=== PATIENT | female | born 1960 | race Caucasian/White ===

== ENCOUNTER 2020-09-25 15:32 | Inpatient (IN) | payer SELFPAY ==
[2020-09-25] MEDS ORDERED: Nitroglycerin 2% Ointment 1 INCH/1 GM Packet ONE (15:44)
[2020-09-25] MEDS ORDERED: Morphine 4 MG/ML VIAL ONE (15:54)
[2020-09-25] MEDS ORDERED: Magnesium 2 GM/50 ML BAG (IN WATER) ONE (15:54)
[2020-09-25] MEDS ORDERED: Ondansetron PF 4 MG/2 ML Vial ONE (15:54)
[2020-09-25] MEDS ORDERED: Albuterol 200 PUFF (6.7GM INHALER) ONE (15:54)
[2020-09-25] MEDS ORDERED: Aspirin 325 MG TAB ONE (15:54)
[2020-09-25] MEDS ORDERED: methylPREDNISolone Sod Succ/PF 125 MG/2 ML VIAL ONE (15:54)
--- NOTE | 2020-09-25 16:05 | RAD ---
Portable frontal chest radiograph: 09/25/2020 COMPARISON: 01/04/2008 HISTORY: Cough with shortness of breath FINDINGS: No pneumothorax or pleural fluid is seen. There is no focal consolidation or alveolar edema . Heart and mediastinal contours are unremarkable. There is diffuse increased linear interstitial density, slightly more conspicuous than on the prior e xamination, a nonspecific finding. Linear calcific density overlying the cardiac silhouette suggest possible coronary arterial calcification. IMPRESSION: Diffuse increased linear interstitial density, progressed since the prior examination, no nspecific. This could represent worsening interstitial disease or superimposed acute interstitial pneumonitis. No focal consolidation or alveolar edema.
[2020-09-25 16:39] LABS: #Lymphocytes 0.8 thou/uL (1.20-3.40); #Monocytes 0.4 thou/uL (0.11-0.59); #Neutrophils 8.2 thou/uL (1.40-6.50); %Basophils 0.3 % (0.0-1.0); %Lymphocytes 8.2 % (21.0-51.0); %Monocytes 4.3 % (0.0-10.0); %Neutrophils 87.2 % (42.0-75.0); Hemoglobin 15.8 g/dL (12.0-16.0); Mean Corpuscular HGB CONC 33.5 g/dL (32.0-36.0); Mean Corpuscular Hemoglobin 33.5 pg (27.0-31.0); Mean Platelet Volume 8.6 fL (7.4-10.4); Platelet Count 198 thou/uL (130-400); RBC Distribution Width 11.9 % (11.5-14.5); Red Blood Cell (RBC) Count 4.72 mill/uL (4.20-5.40); White Blood Cell (WBC) Count 9.4 thou/uL (4.8-10.8)
[2020-09-25 16:48] LABS: ALT (SGPT) 17 U/L (8-55); AST (SGOT) 30 U/L (5-34); Albumin 4.4 g/dL (3.4-4.8); Alkaline Phosphatase 92 U/L (40-110); Anion Gap 24 mmol/L (10-20); BUN (Urea Nitrogen) 33 mg/dL (9.8-20.1); Calc. Creatinine Clearance 0 mL/min (70-130); Calcium 9.4 mg/dL (7.8-10.44); Carbon Dioxide 19 mmol/L (23-31); Chloride 97 mmol/L (98-107); Globulin 4.6 g/dL (2.4-3.5); Glucose 125 mg/dL (80-115); Potassium 4.2 mmol/L (3.5-5.1); Sodium 136 mmol/L (136-145)
[2020-09-25 16:49] LABS: Acetaminophen Less than 6.0 mcg/mL (10.0-30.0); Alcohol Less than 10 mg/dL (Less than 10); Lipase 79 U/L (8-78); Salicylate Less than 8.0 mg/dL (15.0-30.0)
[2020-09-25 17:18] LABS: CKMB 4.6 ng/mL (0-6.6)
[2020-09-25] MEDS ORDERED: Labetalol HCl 100 MG/20 ML VIAL ONE (17:39)
[2020-09-25] MEDS ORDERED: Ondansetron PF 4 MG/2 ML Vial IVP PRN (18:09)
[2020-09-25] MEDS ORDERED: Ondansetron ODT 4 MG TAB PO PRN (18:09)
[2020-09-25] MEDS ORDERED: Acetaminophen 325 MG TAB PO PRN (18:09)
[2020-09-25] MEDS ORDERED: Acetaminophen 650 MG Suppository PR PRN (18:09)
[2020-09-25] MEDS ORDERED: Albuterol Sulfate 2.5 mg/3 ml Neb NEB PRN (18:14)
[2020-09-25] MEDS ORDERED: hydrALAZINE 20 MG/ML VIAL SLOW IVP PRN (18:25)
[2020-09-25] MEDS ORDERED: Heparin 25,000 units/D5W 500 ML IVPB SCH (18:30)
[2020-09-25] MEDS ORDERED: Heparin 10,000 UNITS/ 10 ML VIAL ONE (18:38)
[2020-09-25] MEDS ORDERED: Heparin 25,000 units/D5W 500 ML ONE (18:38)
--- NOTE | 2020-09-25 18:43 | PDOC.HHP ---
Hospitalist HPI - History of Present Illness Abdominal pain, shortness of breath History of Present Illness: Ms. Bower is a 60-year-old female with a past medical history of COPD, asthma, 0.5 pack/day smoker, hypertension, hyperlipidemia, urinary retention who presents to the emergency room for acute onset of abdominal pain. Patient reports that she woke from sleep with 10 out of 10 left-sided abdominal pain and nausea. Patient reports she has been dry heaving and vomiting up foam in any water she tries to keep down. Patient denies presence of bile or blood or coffee-ground in emesis. She also reports that she developed acute onset of shortness of breath approximately an hour after her abdominal pain started. She denies chest pain, palpitations. She denies changes in her vision, dizziness, weakness, paresthesias. She reports having a normal bowel movement this morning and denies diarrhea. In emergency room initial vital signs 207/114, 98.8, 114, 24, 97% on room air. EKG showed sinus tachycardia with no ST changes. Initial troponin elevated at 0.434. BNP 10/01/2007. WBC 9.4. Lipase 79, H/H 15.8/47.2. BUN/CR 33/1.97. Glucose 125, sodium 136, potassium 4.2. Anion gap 24. Chest x-ray showed diffuse increasing interstitial densities concerning for interstitial pneumonitis, but no fluid, consolidation or pulmonary edema. CT of the abdomen on my review revealed significant aortoiliac calcifications, but no obvious abnormalities. Final read still pending. In emergency room patient started on heparin drip, Levaquin, labetalol for hypertensive emergency, aspirin, Solu-Medrol, Zofran, morphine. Patient managed hospital service for further evaluation and monitoring. Hospitalist ROS - Review of Systems Constitutional: denies: fever, chills, sweats, weakness, malaise, other Eyes: denies: pain, vision change, conjunctivae inflammation, eyelid inflammation, redness, other ENT: denies: ear pain, ear discharge, nose pain, nose discharge, nose congestion, mouth pain, mouth swelling, throat pain, throat swelling, other Respiratory: reports: shortness of breath, SOB with excertion, wheezing. denies: cough, dry, hemoptysis, pleuritic pain, sputum, other Cardiovascular: denies: chest pain, palpitations, orthopnea, paroxysmal noc. dyspnea, edema, light headedness, other Gastrointestinal: reports: nausea, vomiting, abdominal pain. denies: diarrhea, constipation, melena, hematochezia, other Genitourinary: reports: retention. denies: dysuria, frequency, incontinence, hematuria, other Musculoskeletal: denies: neck pain, shoulder pain, arm pain, back pain, hand pain, leg pain, foot pain, other Skin: denies: rash, lesions, diya, bruising, other Neurological: denies: weakness, numbness, incoordination, change in speech, confusion, seizures, other - Medication Medications: Medications include Clonidine Metoprolol Proventil Amlodipine No known drug allergies Hospitalist History - Past Medical History Other Medical History: Past medical history includes COPD Asthma Tobacco use Hypertension Hyperlipidemia Urinary retention - Past Surgical History Other Surgical History: Past surgical history significant for Hysterectomy with left oophorectomy Right ankle surgery - Family History Other Family History: Patient denies any pertinent family history. Mother of a gunshot wound and father she is estranged with. - Social History Smoking Status: Current every day smoker Tobacco Type: cigarettes Alcohol: reports: None Drugs: reports: none Living Situation: With Family Activity level: independent ambulation - Exam General Appearance: awake alert General - other findings: Patient appears uncomfortable, nauseated and tripoding Eye: PERRL, anicteric sclera ENT: normocephalic atraumatic, no oropharyngeal lesions, moist mucosa Neck: supple, symmetric, no JVD, no thyromegaly, no lymphadenopathy, no carotid bruit Heart: no murmur, no gallops, no rubs, normal peripheral pulses Heart - other findings: Tachycardic Respiratory - other findings: Wheezes throughout Gastrointestinal: soft, normal bowel sounds, no palpable masses, no guarding, no rigidity, tender to palpation (In the left lower quadrant) Extremities - other findings: Extremities thin Skin: normal turgor, no lesions, no rashes Neurological: cranial nerve grossly intact, normal sensation to touch, no weakness, no focal deficits, no new deficit Musculoskeletal: normal tone, normal strength, no muscle wasting Psychiatric: normal affect, normal behavior, A&O x 3 Hospitalist Results - Labs Result Diagrams: 09/25/20 16:21 09/25/20 16:21 Lab results: WBC 9.4 thou/uL (4.8-10.8) 09/25/20 16:21 Hgb 15.8 g/dL (12.0-16.0) 09/25/20 16:21 Hct 47.2 % (36.0-47.0) H 09/25/20 16:21 MCV 100.0 fL (78.0-98.0) H 09/25/20 16:21 Plt Count 198 thou/uL (130-400) 09/25/20 16:21 Neutrophils % 87.2 % (42.0-75.0) H 09/25/20 16:21 Sodium 136 mmol/L (136-145) 09/25/20 16:21 Potassium 4.2 mmol/L (3.5-5.1) 09/25/20 16:21 Chloride 97 mmol/L (98-107) L 09/25/20 16:21 Carbon Dioxide 19 mmol/L (23-31) L 09/25/20 16:21 BUN 33 mg/dL (9.8-20.1) H 09/25/20 16:21 Creatinine 1.97 mg/dL (0.6-1.1) H 09/25/20 16:21 Glucose 125 mg/dL (80-115) H 09/25/20 16:21 Calcium 9.4 mg/dL (7.8-10.44) 09/25/20 16:21 Total Bilirubin 1.0 mg/dL (0.2-1.2) 09/25/20 16:21 AST 30 U/L (5-34) 09/25/20 16:21 ALT 17 U/L (8-55) 09/25/20 16:21 Alkaline Phosphatase 92 U/L (40-110) 09/25/20 16:21 CK-MB (CK-2) 4.6 ng/mL (0-6.6) 09/25/20 16:21 Troponin I 0.434 ng/mL (< 0.028) H* 09/25/20 16:21 B-Natriuretic Peptide 1508.2 pg/mL (0-100) H 09/25/20 16:21 Serum Total Protein 9.0 g/dL (6.0-8.3) H 09/25/20 16:21 Albumin 4.4 g/dL (3.4-4.8) 09/25/20 16:21 Lipase 79 U/L (8-78) H 09/25/20 16:21 Hospitalist H&P A/P - Plan Plan: Abdominal pain 60-year-old female with possible history of COPD, asthma, tobacco use, hypertension presents with acute onset of abdominal pain associated with nausea and vomiting that began day of admission. Patient reports pain is worse in the left lower quadrant, and she is tender to palpation in this area. No guarding or rebound. No history of diverticulosis. AST/ALT 30/17, lipase 79. CT abdomen pelvis no acute findings, however did show significant aortoiliac calc ifications. High suspicion for peripheral vascular disease. While less likely mesenteric ischemia certainly in the differential. Will obtain stat lactic acid. We will continue to monitor and treat nausea. Also send off stool studies. Plan Stat lactic acid Final CT read pending Zofran as needed Serial abdominal exams Acute COPD exacerbation Patient presented in acute COPD exacerbation with acute onset shortness of breath and new oxygen requirement of 2 L nasal cannula. Chest x-ray showed diffuse increased interstitial densities concerning for interstitial pn eumonitis. On exam patient tight and wheezing throughout all lung bernardo. Patient received Solu-Medrol, Levaquin in emergency room. We will continue with scheduled duo nebs, albuterol nebs, Levaquin, steroids. Given patient's shortness of breath, elevated troponin, and persistent tachycardia will obtain D-dimer. Due to patient's kidney function unable to pursue CTA at this time. Will pursue VQ scan if D-dimer elevated. Plan Continue steroids, duo nebs, Levaquin Continuous pulse ox monitoring Stat ABG Supplemental oxygen as needed NSTEMI Patient with elevated troponin of 0.434. Given patient's acute onset of shortness of breath and persistent tachycardia high suspicion for pulmonary embolism versus ACS. Patient's abdominal pain may be atypical chest pain. EKG with sinus tachycardia, no ischemic changes. Patient does have significant risk factors including history of hypertension, hyperlipidemia, current smoker. Patient initiated on heparin drip in emergency room, which we will continue. Plan Trend troponin Telemetry monitoring Echocardiogram Heparin drip TSH, magnesium, lipid panel Cardiology consult in a.m. Acute kidney injury in setting of chronic kidney disease Patient presented with acute kidney injury with BUN/CR 33/1.97. Patient does report she has a history of some kidney problems, however she is not sure of any of the details. Suspect history of CKD. Patient denies history of congestive heart failure, however BNP elevated at 1508. Patient appears dry on exam. Plan Gentle IV fluids Trend kidney function Avoid nephrotoxic agents Renal dosing as appropriate Hypertensive emergency Patient presented with hypertensive urgency with initial blood pressure 207/114. On chart review patient has had a history of previous hypertensive emergencies. At home she takes clonidine, metoprolol, amlodipine. Patient reports that she has not taken these today. Patient started on labetalol in emergency room. Blood pressure now 180s over 110. We will continue antihypertensives making sure to slowly correct patient's blood pressure. Plan IV hydralazine as needed Labetalol second line, however avoid given COPD exacerbation Restart patient's home medications Telemetry monitoring Urinary retention Patient with urinary retention and abdominal pain. Question if this could be a component of patient's abdominal pain. We will BladderScan patient and straight cath as needed. Also obtain UA. Elevated anion gap Patient's anion gap elevated to 24. Tox screen negative. Likely elevated in setting of nausea and vomiting, will obtain stat lactic acid. Plan Stat lactic acid Telemetry monitoring Continue to monitor electrolytes Peripheral vascular disease Patient with significant aortoiliac calcifications on CT scan and possible aneurysm of iliac, final read pending. Body habitus also consistent with peripheral vascular disease. Patient will likely need outpatient follow-up vs CT surgery consult for evaluation of her aortoiliac disease and question aneurysm. Tobacco use Patient with history of tobacco use. 1/2 pack/day smoker. Counseled patient on smoking cessation especially given COPD, peripheral vascular disease, likely coronary artery disease as well. DVT prophylaxison heparin drip Full codeMDM is patient's Case discussed with attending physician Dr. Morley
--- NOTE | 2020-09-25 19:44 | CT ---
CT ABDOMEN AND PELVIS WITHOUT CONTRAST: 09/25/20 PROVIDED CLINICAL HISTORY: Abdominal pain. FINDINGS: Comparison is made with the study dated 01/10/17. The visualized lung bases are free of significant opacity. The solid abdominal organs are suboptimally evaluated in the absence of IV contrast material but dem onstrate an unchanged, unenhanced CT appearance. There is no evidence for urinary tract calculi or hy dronephrosis. There is no bowel dilatation, inflammatory fat stranding, free fluid or free air apparent. Extensive atherosclerotic vascular calcifications are demonstrated with high grade calcified stenosis involving the distal abdominal aorta and both common iliac arteries redemonstrated. 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 There is apparent thickening of the urinary bladder wall despite being well distended. There is no thompson rrounding inflammatory change evident. There is no evidence for appendicitis. Occasional colonic div erticula are seen without evidence for diverticulitis. The osseous structures demonstrate no concerning lytic or blastic lesions. IMPRESSION: 1. Conspicuous atherosclerosis as described. 2. Nonspecific bladder wall thickening without surrounding fat stranding. Correlate with concern for cystitis. POS: DALE
[2020-09-25 19:50] LABS: Lactic Acid 2.1 mmol/L (0.5-2.2)
[2020-09-25] MEDS ORDERED: Sodium Chloride 0.9% 500 ML IV SCH (20:00)
[2020-09-25 20:09] LABS: Troponin I 0.933 ng/mL (< 0.028)
[2020-09-25] MEDS: Albuterol Sulfate 2.5 mg/3 ml Neb NEB SCH ×2 (20:50→23:22)
[2020-09-25] MEDS: hydrALAZINE 25 MG TAB PO SCH (22:24)
[2020-09-25] MEDS: cloNIDine 0.1 MG TAB PO SCH (22:25)
[2020-09-25] MEDS: Metoprolol Tartrate 25 MG TAB PO SCH (22:25)
[2020-09-25] MEDS: Pantoprazole 40 MG VIAL IVP SCH (22:25)
[2020-09-25 22:46] LABS: Troponin I 0.939 ng/mL (< 0.028)
[2020-09-26 00:06] VITALS: BMI 22.4
[2020-09-26] MEDS: Nitroglycerin 0.4mg/Hour PATCH TD SCH ×2 (01:28→23:43)
[2020-09-26 05:09] LABS: #Lymphocytes 0.8 thou/uL (1.20-3.40); #Monocytes 0.5 thou/uL (0.11-0.59); #Neutrophils 5.1 thou/uL (1.40-6.50); %Basophils 0.3 % (0.0-1.0); %Eosinophils 0.1 % (0.0-10.0); %Lymphocytes 12.5 % (21.0-51.0); %Monocytes 7.1 % (0.0-10.0); Hemoglobin 13.8 g/dL (12.0-16.0); Mean Corpuscular HGB CONC 32.9 g/dL (32.0-36.0); Mean Corpuscular Hemoglobin 32.7 pg (27.0-31.0); Mean Corpuscular Volume 99.4 fL (78.0-98.0); Mean Platelet Volume 8.6 fL (7.4-10.4); Platelet Count 169 thou/uL (130-400); White Blood Cell (WBC) Count 6.4 thou/uL (4.8-10.8)
[2020-09-26 05:19] LABS: SARS-CoV-2 MS2 Positive; SARS-CoV-2 N Gene Negative; SARS-CoV-2 S Gene Negative; SARS-CoV-2 by NAA Not Detected (NotDetected); SARS-CoV-2 orf1ab Negative
[2020-09-26 05:28] LABS: Anion Gap 18 mmol/L (10-20); BUN (Urea Nitrogen) 32 mg/dL (9.8-20.1); Calc. Creatinine Clearance 31 mL/min (70-130); Calcium 8.8 mg/dL (7.8-10.44); Carbon Dioxide 19 mmol/L (23-31); Chloride 96 mmol/L (98-107); Glucose 122 mg/dL (80-115); Sodium 129 mmol/L (136-145)
[2020-09-26] MEDS ORDERED: Heparin 10,000 UNITS/ 10 ML VIAL SLOW IVP SCH (08:00)
[2020-09-26] MEDS: Albuterol Sulfate 2.5 mg/3 ml Neb NEB SCH ×3 (08:22→19:24)
[2020-09-26] MEDS: Amlodipine 10 MG TAB PO SCH (09:00)
[2020-09-26] MEDS: Pantoprazole 40 MG VIAL IVP SCH ×2 (09:00→21:38)
[2020-09-26] MEDS: predniSONE 20 MG TAB PO SCH (09:00)
[2020-09-26] MEDS: hydrALAZINE 25 MG TAB PO SCH ×3 (09:01→21:36)
[2020-09-26] MEDS: cloNIDine 0.1 MG TAB PO SCH ×3 (09:01→21:37)
[2020-09-26] MEDS: Metoprolol Tartrate 25 MG TAB PO SCH ×2 (09:01→21:37)
[2020-09-26] MEDS: Aspirin 81 mg Enteric Coated Tablet PO SCH (09:01)
[2020-09-26 09:50] LABS: Bacteria/HPF None Seen HPF (None Seen); Bilirubin Negative (Negative); Blood, Urine Trace (Negative); Clarity Clear (Clear); Glucose, Urine (Dipstick) Normal (Negative); Ketone, Urine Trace mg/dL (Negative); Leukocyte Negative Leu/uL (Negative); Nitrite Negative (Negative); Protein, Urine (Dipstick) 70 mg/dL (Neg-Trace); RBC/HPF 0-3 HPF (0-3); Specific Gravity, Urine 1.013 (1.002-1.036); Urobilinogen Normal mg/dL (Less than 2); WBC/HPF 0-3 HPF (0-3)
[2020-09-26 09:56] LABS: Urine Culture Reflex No No
[2020-09-26] MEDS ORDERED: Regadenoson 0.4 MG/5 ML SYRINGE ONE (10:08)
--- NOTE | 2020-09-26 10:59 | CON ---
DATE OF CONSULTATION: 09/26/2020 INDICATION FOR CONSULTATION: A 60-year-old female with indeterminate cardiac enzymes. HISTORY OF PRESENT ILLNESS: This is a very unfortunate 60-year-old female, who has a history of COPD, asthma, smokes half a pack a day, has done so for more than 20 years. She has smoked up to a pack a day. She has a history of dyslipidemia, hypertension. She presented to the emergency room with complaints of abdominal pain. She said it woke her from sleep, but she has been coughing for the last couple of days prior to being admitted. She also notes that she woke up and she was unable to breathe due to her significant shortness of breath and coughing, and her brought her to the emergency room. She denied any chest pain. She denied any palpitations. She has had no other significant complaints except she complained of the abdominal pain with nausea and vomiting and then developed the coughing and shortness of breath. She does smoke significantly and most likely has a history of COPD. She has also some chronic renal insufficiency. She was seen in the past by Nephrology, but then did not return due to financial issues. At this time, also her BNP was 1508. She has not had an echocardiogram performed yet and this is also pending. Her cardiac enzymes were indeterminate and slightly elevated, which may be due to the chronic renal insufficiency and the coughing and the strain, and most likely type 2 myocardial infarction. Troponin-I on admission was 0.43 and increased up to 0.93 and repeat was the same at 0.93. At this time, she still denies any chest pain. EKG does not show any ischemic changes. PAST MEDICAL HISTORY: Significant for right elbow surgery, left thumb surgery. She has also had history of hypertension, diabetes, hypercholesterolemia. I do not think she has been taking any medicines for cholesterol and she says she does not know what her cholesterol level is, but apparently, according to the records, there is some mention that she does have dyslipidemia. She has also had problems with urinary retention in the past. There has also been from 2017, a CT scan, which shows aortoiliac calcifications. The CT scan repeated showed also similar picture. 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 ALLERGIES: NO KNOWN DRUG ALLERGIES. MEDICATIONS: Include; 1. Tylenol. 2. Heparin given IV. 3. She is also on a Ventolin inhaler. 4. DuoNebs. 5. She has been given Lopressor 25 mg b.i.d. 6. Clonidine 0.1 mg t.i.d. 7. Amlodipine 10 mg a day. 8. She is also given Apresoline on a p.r.n. basis at 10 mg IV. 9. Hydralazine 50 mg t.i.d. 10. Nitroglycerin patch was applied. 11. Aspirin 81 mg a day. 12. Protonix 40 mg IV q.12 hours. 13. She has also been placed on levofloxacin. 14. In the emergency room, I believe she was given Solu-Medrol as well as Zofran. She was given magnesium, labetalol, Normodyne, and aspirin. FAMILY HISTORY: Noncontributory. She has no siblings. Parents; her mother was killed by a gunshot wound, she is uncertain about her father, but there is no history that she is aware of early coronary artery disease. SOCIAL HISTORY: She drinks rarely, just on occasions. Tobacco, she has had a 20-year history of tobacco abuse, half a pack to a pack a day. She is . She has no children. REVIEW OF SYSTEMS: HEENT: She denies any HEENT complaints. PULMONARY: She mainly complains of the recent cough. She continued to have occasional cough during the evaluation. Otherwise, she complains of some shortness of breath with exertion or dyspnea on exertion. She denied any hemoptysis. CARDIOVASCULAR: She denies any chest pain. She does have occasional palpitations. GI: She complains of abdominal pain with some nausea and vomiting. This has resolved apparently. : No dysuria, polyuria, or hematuria, but does have a history of chronic renal insufficiency, for which she has been seen in the past by Nephrology, but was unable to follow up. MUSCULOSKELETAL: She does complain of leg cramps at night, but no significant cramping when she is walking, but she does have some fatigue in the left lower extremity with ambulation. NEUROLOGIC: She denies any abnormalities. No seizures or syncope. MEDICATIONS PRIOR TO ADMISSION: Included; 1. Clonidine. 2. Metoprolol. 3. Proventil. 4. Amlodipine. PHYSICAL EXAMINATION: GENERAL: Reveals an elderly female, who actually appears somewhat older than her stated age. VITAL SIGNS: Blood pressure is 146/76, respiratory rate is 19, heart rate 72 and regular. She is afebrile. HEENT: Shows the head to be normocephalic and atraumatic. Carotid pulses are present. I do not hear any bruits. CHEST: Has somewhat decreased breath sounds, but she has a late expiratory wheezing throughout, mainly in the bases, but throughout she has a late expiratory wheezing. CARDIOVASCULAR: Reveals a regular rate and rhythm with normal S1 and S2. There is no S3 or S4. There were no significant murmurs, heaves, thrills, bruits, or rubs noted. ABDOMEN: Soft. She does have no significant tenderness. Some mild tenderness in the left lower quadrant, but otherwise no significant tenderness noted. EXTREMITIES: Show no clubbing, cyanosis, or edema. Femoral pulses are present. She has bilateral femoral bruits. Popliteal pulses are present, but are diminished. I cannot palpate left pedal pulses. The right pedal pulses are decreased, but are present. NEUROLOGICAL: She appears to be intact. LABORATORY DATA: Show a sodium of 129, potassium of 4.0, BUN was 32, and creatinine of 1.92, and blood sugar was 122. Her D-dimer was 1.52. WBC of 6.4, hemoglobin 13.8, hematocrit was 41.8, platelet count was 169,000. Troponin-I as noted above. Her BNP was 1508. She was negative for COVID. EKG shows a normal sinus rhythm with no acute changes, no indication of ischemia. IMPRESSION: 1. Abnormal cardiac enzymes, most likely due to stress from the coughing, nausea and vomiting, most likely it is a type 2 myocardial infarction. Given the fact that she has normal EKG, no chest pain, and only minimal increase in the cardiac enzymes, I would suggest she undergo a stress test in view of her risk factors for coronary artery disease, which include hypertension, diabetes, hypercholesterolemia, and smoking. 2. History of tobacco abuse. She was strongly encouraged to stop smoking. 3. Hypertension. This is under much better control at this time on the present medications. 4. Chronic renal insufficiency. She may need some assistance to follow up to continue to follow her kidney function. 5. 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 This can be monitored by repeat CT scan. Does not appear to have changed since 2017. 6. As far as her hyperlipidemia, I do not have a cholesterol level in the chart significantly elevated, we would suggest that she needs to have an LDL level of less than 70 due to her history of tobacco abuse. We will evaluate the echocardiogram when available. We will also schedule her for stress testing to rule out evidence of underlying ischemia. We are more than happy to continue to follow this patient with you throughout her hospital course. Job ID: [id number] GABRIEL
--- NOTE | 2020-09-26 14:11 | NM ---
Radionucleotide stress and rest myocardial perfusion scan with CT attenuation correction and SPECT im aging Left ventricular wall motion evaluation and ejection fraction HISTORY: Chest pain. FINDINGS: Lexiscan protocol. Heterogeneous uptake of radiotracer throughout the left ventricular myoc ardium. No focal perfusion defect or reversibility. QGS analysis of gated SPECT images shows no focal wall motion abnormalities. Ejection fraction calcul ated at 58%. IMPRESSION : No evidence of ischemia. Normal LVEF.
--- NOTE | 2020-09-26 14:23 | PDOC.HOSPP ---
- Subjective Encounter Date: 09/26/20 Encounter Time: 14:21 Subjective: Patient was seen and examined in bed. She complains of ongoing cough and shortness of breath. He denies any chest pain. Also denies any fevers, chills. No significant events overnight - Objective Vital Signs & Weight: Vital Signs (12 hours) Temp Pulse Resp BP Pulse Ox 09/26/20 12:30 98.1 F 75 21 H 138/73 96 09/26/20 08:20 72 19 09/26/20 07:25 98.3 F 67 16 146/76 H 94 L 09/26/20 03:39 98.6 F 77 18 163/78 H 95 09/26/20 03:13 94 L Weight Weight 139 lb 5.314 oz I&O: 09/25/20 09/26/20 09/27/20 06:59 06:59 06:59 Intake Total 958 Output Total 600 Balance 358 Result Diagrams: 09/26/20 04:36 09/26/20 04:36 Hospitalist ROS - Review of Systems All other systems reviewed; all pertinent +/- noted in HPI/Subj - Medication Medications: Active Medications Generic Name Dose Route Start Last Admin Trade Name Freq PRN Reason Stop Dose Admin Albuterol Sulfate 2.5 mg 09/25/20 19:00 09/26/20 08:22 Albuterol Sulfate 2.5 Mg/3 Ml Neb NEB Not Given [id number] KURTIS Albuterol/Ipratropium 3 ml 09/25/20 18:30 09/26/20 11:35 Ipratropium/Albuterol Sulfate 3 Ml Neb NEB Not Given [id number] KURTIS Amlodipine Besylate 10 mg 09/26/20 09:00 09/26/20 09:00 Amlodipine 10 Mg Tab PO 10 mg DAILY KURTIS Administration Aspirin 81 mg 09/26/20 09:00 09/26/20 09:01 Aspirin 81 Mg Enteric Coated Tablet PO 81 mg DAILY KURTIS Administration Clonidine 0.1 mg 09/25/20 21:00 09/26/20 09:01 Clonidine 0.1 Mg Tab PO 0.1 mg TID KURTIS Administration Heparin Sodium (Porcine) 0 units 09/26/20 08:00 09/26/20 08:54 Heparin 10,000 Units/ 10 Ml Vial SLOW IVP 1,896 unit WILLCALL KURTIS Administration Hydralazine HCl 50 mg 09/25/20 21:00 09/26/20 09:01 Hydralazine 25 Mg Tab PO 50 mg TID KURTIS Administration Metoprolol Tartrate 25 mg 09/25/20 21:00 09/26/20 09:01 Metoprolol Tartrate 25 Mg Tab PO 25 mg BID KURTIS Administration Nitroglycerin 1 patch 09/25/20 23:59 09/26/20 01:28 Nitroglycerin 0.4mg/Hour Patch TD Not Given 2359 KURTIS Pantoprazole Sodium 40 mg 09/25/20 21:00 09/26/20 09:00 Pantoprazole 40 Mg Vial IVP 40 mg Q12HR KURTIS Administration Prednisone 40 mg 09/26/20 08:00 09/26/20 09:00 Prednisone 20 Mg Tab PO 40 mg QAM-WM KURTIS Administration Sodium Chloride 10 ml 09/25/20 18:09 09/25/20 22:25 Flush - Normal Saline 10 Ml Syringe IVF 10 ml PRN PRN Administration Saline Flush - Exam General Appearance: awake alert Eye: PERRL, anicteric sclera ENT: normocephalic atraumatic, moist mucosa Heart: RRR, no murmur, no gallops, no rubs Respiratory: CTAB, no rales, no ronchi, wheezes Gastrointestinal: soft, non-tender, non-distended, normal bowel sounds, no hepatomegaly Extremities: no cyanosis, no clubbing, no edema Neurological: cranial nerve grossly intact, no focal deficits Psychiatric: normal affect, normal behavior, A&O x 3 Hosp A/P - Plan This is a 60-year-old female patient with a history of asthma, COPD admitted on account of acute COPD exacerbation and elevated troponins COPD exacerbation Continue duo nebs Levaquin and steroids As needed oxygen Continue monitoring. NSTEMI type II Negative troponin Stress test negative DC heparin Appreciate cardiology input. CKD Patient follows Dr. Gill consult in a.m. Urinary retention Continue monitoring. Peripheral vascular disease currently asymptomatic Start atorvastatin/aspirin She will need follow-up monitoring by PCP and possible cardiovascular referral. Tobacco use Counseled on cessation VT prophylaxiswe will start Lovenox CODE STATUSfull code
[2020-09-26] MEDS: Heparin 5,000 UNITS/ML VIAL SC SCH ×2 (14:59→21:37)
--- NOTE | 2020-09-26 18:39 | CON ---
DATE OF CONSULTATION: 09/26/2020 HISTORY OF PRESENT ILLNESS: Ms. Bower is a 60-year-old white female with known history of chronic renal failure secondary to presumed hypertensive nephropathy. The patient was admitted for shortness of breath. The feeling is that she may have a COPD exacerbation. Chest x-ray did not show overt pulmonary edema, but shows some chronic lung changes/interstitial pneumonitis? We are being consulted for evaluation of her chronic renal failure. She was also incidentally found to be hyponatremic. Please note, this patient has history of alcohol intake as well as increased fluid intake. REVIEW OF SYSTEMS: Positive for cough. Positive for mild shortness of breath. Denies any fever or chills. No syncopal episode. No leg edema. Occasional joint pains. Occasional abdominal pain. Energy level is fair. Appetite fair. No headache. No sore throat. No dysuria. No hematochezia. No melena. MEDICATIONS: The patient is currently on; 1. DuoNeb treatment. 2. Amlodipine 10 mg daily. 3. Aspirin 81 mg tablet once a day. 4. Atorvastatin 40 mg tablet at bedtime. 5. Clonidine 0.1 mg p.o. t.i.d. 6. Heparin 5000 units subcu t.i.d. 7. Hydralazine 50 mg p.o. t.i.d. 8. Levaquin 500 mg IV daily. 9. Metoprolol tartrate 25 mg p.o. b.i.d. 10. Zofran 4 mg q.6 p.r.n. 11. Protonix 40 mg tablet once a day. 12. Prednisone 40 mg q.a.m. PAST MEDICAL HISTORY: COPD/asthma, chronic renal failure from presumed hypertensive nephropathy, hyperlipidemia, longstanding hypertension. She is status post urethral stricture. History of alcohol use/abuse. PAST SURGICAL HISTORY: Status post oophorectomy, status post right ankle surgery, status post urethral dilatation. SOCIAL HISTORY: The patient is . Lives in [place]. No children. Smoked 1/2 pack a day for the last several years - 40 years. Alcohol intake, use of wine cooler daily. No blood transfusion. No IV drug abuse. Education, 11th grade. Works as a cleaning lady. ALLERGIES: NONE. TRAUMA: None. HOSPITALIZATIONS: Please see past medical history. IMMUNIZATIONS: Up to date. FAMILY HISTORY: No family history of ESRD. PHYSICAL EXAMINATION: VITAL SIGNS: Blood pressure 151/73, heart rate 73, respiratory rate 20, temperature 98.1, O2 saturation 95% on room air. GENERAL: The patient is awake, alert, comfortable, not in distress. SKIN: Adequate turgor. HEENT: She has pinkish conjunctivae. Anicteric sclerae. No neck mass. No carotid bruits. No JVD. CHEST: No deformities. LUNGS: Decreased breath sounds. Positive for wheezing. HEART: Normal sinus rhythm. No murmur. No gallops. No rubs. ABDOMEN: Globular, soft, nontender. No masses. EXTREMITIES: No edema. No deformities. NEUROLOGIC: Moving all extremities. No tremors. No asterixis. No ataxia. LABORATORY DATA: Laboratories of September 25, 2020: PCR for COVID-19 - nondetected. On September 26, 2020: Sodium 129, potassium 4, chloride 96, carbon dioxide 19, BUN 32, creatinine 1.92, glucose 122, calcium 8.8. Troponin-I 0.939. Lactic acid is 2.1. Further review of her serum creatinine shows the following, on September 25, 2020, it was 1.97. On March 06, 2020, creatinine noted at 2.1. Further review of the serum sodium shows the following, on September 25, 2020, serum sodium 136. On April 27, 2017, serum sodium 138. Chest x-ray, increased lung markings. CT scan of the abdomen and pelvis, no hydronephrosis. ASSESSMENT AND PLAN: 1. Chronic renal failure - previous evaluation suggests she may have underlying hypertensive nephropathy due to her longstanding history of hypertension and finding of protein in the urine. Management, supportive. Please note her renal function is at baseline. No indication for any dialytic intervention. 2. Chronic hyponatremia - intermittent hyponatremia. I suggested this patient that she should be on a free water restriction of at least 1 L. In addition, I encouraged her to decrease or discontinue her alcoholic intake. It is unclear if this patient will be compliant regarding this. 3. Chronic obstructive pulmonary disease exacerbation, on antibiotics and steroids. Renal function is stable and at baseline. We will be signing off. Please re-call if needed. Job ID: [id number]
[2020-09-26] MEDS ORDERED: Atorvastatin Calcium 40 MG TAB PO SCH (21:00)
[2020-09-27] MEDS: Albuterol Sulfate 2.5 mg/3 ml Neb NEB SCH ×3 (00:11→13:39)
[2020-09-27 04:49] LABS: #Basophils 0.1 thou/uL (0.0-0.2); #Lymphocytes 2.2 thou/uL (1.20-3.40); #Monocytes 1.1 thou/uL (0.11-0.59); #Neutrophils 4.8 thou/uL (1.40-6.50); %Basophils 0.6 % (0.0-1.0); %Eosinophils 0.1 % (0.0-10.0); %Lymphocytes 26.9 % (21.0-51.0); %Neutrophils 59.4 % (42.0-75.0); Hemoglobin 13.7 g/dL (12.0-16.0); Mean Corpuscular HGB CONC 33.1 g/dL (32.0-36.0); Mean Corpuscular Hemoglobin 33.1 pg (27.0-31.0); Mean Corpuscular Volume 99.9 fL (78.0-98.0); Mean Platelet Volume 8.9 fL (7.4-10.4); Platelet Count 148 thou/uL (130-400); RBC Distribution Width 11.9 % (11.5-14.5); Red Blood Cell (RBC) Count 4.15 mill/uL (4.20-5.40); White Blood Cell (WBC) Count 8.1 thou/uL (4.8-10.8)
[2020-09-27 05:18] LABS: Anion Gap 15 mmol/L (10-20); BUN (Urea Nitrogen) 39 mg/dL (9.8-20.1); Calc. Creatinine Clearance 27 mL/min (70-130); Calcium 8.6 mg/dL (7.8-10.44); Carbon Dioxide 22 mmol/L (23-31); Chloride 96 mmol/L (98-107); Glucose 102 mg/dL (80-115); Potassium 3.8 mmol/L (3.5-5.1); Sodium 129 mmol/L (136-145)
[2020-09-27] MEDS: Aspirin 81 mg Enteric Coated Tablet PO SCH (08:30)
[2020-09-27] MEDS: Amlodipine 10 MG TAB PO SCH (08:30)
[2020-09-27] MEDS: predniSONE 20 MG TAB PO SCH (08:30)
[2020-09-27] MEDS: cloNIDine 0.1 MG TAB PO SCH ×2 (08:31→14:33)
[2020-09-27] MEDS: Pantoprazole 40 MG VIAL IVP SCH (08:31)
[2020-09-27] MEDS: hydrALAZINE 25 MG TAB PO SCH ×2 (08:31→14:33)
[2020-09-27] MEDS: Heparin 5,000 UNITS/ML VIAL SC SCH ×2 (08:31→14:33)
[2020-09-27] MEDS: Metoprolol Tartrate 25 MG TAB PO SCH (08:31)
[2020-09-27 11:26] VITALS: TEMP 97.9
[2020-09-27 17:11] VITALS: BP 121/58
== END 2020-09-27 18:03 | disposition home or self-care (01) | DRG 190 ==
LOC: ERS 15:32 → 2NO 17:32
PROVIDERS: ADMIT Internal Medicine; ATTEND Internal Medicine
DX: J44.1 Chronic obstructive pulmonary disease with (acute) exacerbation (principal); I21.A1 Myocardial infarction type 2; N17.9 Acute kidney failure, unspecified; I16.1 Hypertensive emergency; E87.1 Hypo-osmolality and hyponatremia; Z20.822 Contact with and (suspected) exposure to COVID-19; F17.210 Nicotine dependence, cigarettes, uncomplicated; N18.9 Chronic kidney disease, unspecified; I12.9 Hypertensive chronic kidney disease with stage 1 through stage 4 chronic kidney disease, or unspecified chronic kidney disease; R33.9 Retention of urine, unspecified; E78.00 Pure hypercholesterolemia, unspecified; E78.5 Hyperlipidemia, unspecified; I72.3 Aneurysm of iliac artery; Z90.721 Acquired absence of ovaries, unilateral; Z79.899 Other long term (current) drug therapy; Z79.82 Long term (current) use of aspirin; Z91.14 Patient's other noncompliance with medication regimen
CPT/HCPCS: 36415; 71045; 74176; 78452; 80048; 80053; 80307; 81001; 82553; 83605; 83690; 83735; 83880; 84484; 85025; 85379; 85730; 87040; 87633; 87635; 93005; 93017; 93306; 96365; 96366; 96368; 96375; A9500; C9113; J1644; J1956; J2270; J2405; J2785; J2930; J3475; J7512; J7620; U0003

== ENCOUNTER 2020-12-24 13:13 | Emergency (ER) | payer SELFPAY ==
[2020-12-24 13:46] LABS: Bilirubin Negative (Negative); Blood, Urine Negative (Negative); Clarity Turbid (Clear); Glucose, Urine (Dipstick) Normal (Negative); Ketone, Urine Negative (Negative); Leukocyte 500 Leu/uL (Negative); Nitrite Negative (Negative); Protein, Urine (Dipstick) Negative (Neg-Trace); RBC/HPF 0-3 HPF (0-3); Specific Gravity, Urine 1.007 (1.002-1.036); Urobilinogen Normal mg/dL (Less than 2); WBC/HPF Greater than 50 HPF (0-3); pH, Urine 6.5 (5.0-9.0)
[2020-12-24 13:47] LABS: Bacteria/HPF 1+ HPF (None Seen)
[2020-12-24 14:54] LABS: #Basophils 0.1 thou/uL (0.0-0.2); #Eosinphils 0.1 thou/uL (0.0-0.7); #Lymphocytes 2.7 thou/uL (1.20-3.40); #Monocytes 0.9 thou/uL (0.11-0.59); #Neutrophils 4.5 thou/uL (1.40-6.50); %Basophils 0.8 % (0.0-1.0); %Eosinophils 0.7 % (0.0-10.0); %Monocytes 10.7 % (0.0-10.0); %Neutrophils 54.8 % (42.0-75.0); Hemoglobin 13.9 g/dL (12.0-16.0); Mean Corpuscular HGB CONC 34.2 g/dL (32.0-36.0); Mean Corpuscular Hemoglobin 32.9 pg (27.0-31.0); Mean Corpuscular Volume 96.2 fL (78.0-98.0); Mean Platelet Volume 8.7 fL (7.4-10.4); Platelet Count 193 thou/uL (130-400); RBC Distribution Width 11.7 % (11.5-14.5); Red Blood Cell (RBC) Count 4.24 mill/uL (4.20-5.40); White Blood Cell (WBC) Count 8.1 thou/uL (4.8-10.8)
[2020-12-24 15:15] LABS: ALT (SGPT) 12 U/L (8-55); AST (SGOT) 22 U/L (5-34); Albumin 3.9 g/dL (3.4-4.8); Alkaline Phosphatase 108 U/L (40-110); Anion Gap 16 mmol/L (10-20); BUN (Urea Nitrogen) 22 mg/dL (9.8-20.1); Bilirubin, Total 1.3 mg/dL (0.2-1.2); Calc. Creatinine Clearance 0 mL/min (70-130); Calcium 8.6 mg/dL (7.8-10.44); Carbon Dioxide 19 mmol/L (23-31); Chloride 99 mmol/L (98-107); Globulin 3.8 g/dL (2.4-3.5); Glucose 103 mg/dL (80-115); Potassium 4.9 mmol/L (3.5-5.1); Protein, Total 7.7 g/dL (5.8-8.1); Sodium 129 mmol/L (136-145)
[2020-12-24] MEDS ORDERED: methylPREDNISolone Sod Succ/PF 125 MG/2 ML VIAL ONE (15:44)
[2020-12-24] MEDS ORDERED: Albuterol 200 PUFF (6.7GM INHALER) ONE (15:50)
[2020-12-24] MEDS ORDERED: Cefdinir 300 MG CAP PO SCH (16:00)
[2020-12-24] MEDS ORDERED: Furosemide 20 MG/2 ML VIAL ONE (16:24)
== END 2020-12-24 16:40 | disposition home or self-care (01) ==
LOC: ERS 13:13
DX: N39.0 Urinary tract infection, site not specified (principal); I11.0 Hypertensive heart disease with heart failure; I50.9 Heart failure, unspecified; J44.9 Chronic obstructive pulmonary disease, unspecified; J45.909 Unspecified asthma, uncomplicated; F17.210 Nicotine dependence, cigarettes, uncomplicated; Z79.82 Long term (current) use of aspirin; Z79.899 Other long term (current) drug therapy
CPT/HCPCS: 36415; 71045; 80053; 81003; 81015; 83880; 84484; 85025; 87086; 93005; 96374; 96375; J1940; J2930

== ENCOUNTER 2022-03-16 10:58 | Inpatient (IN) | payer SELFPAY ==
[2022-03-16] MEDS ORDERED: Magnesium 2 GM/50 ML BAG (IN WATER) ONE ×2 (11:58→11:59)
[2022-03-16] MEDS ORDERED: Dexamethasone 10 MG/ML VIAL ONE (11:58)
[2022-03-16] MEDS ORDERED: Albuterol Sulfate 2.5 mg/0.5 ml Neb ONE (12:11)
[2022-03-16 12:31] LABS: Bacteria/HPF 2+ HPF (None Seen); Bilirubin Negative (Negative); Blood, Urine Negative (Negative); Clarity Turbid (Clear); Glucose, Urine (Dipstick) Normal (Negative); Ketone, Urine 20 mg/dL (Negative); Leukocyte 250 Leu/uL (Negative); Nitrite 2+ (Negative); Protein, Urine (Dipstick) 30 mg/dL (Neg-Trace); RBC/HPF 0-3 HPF (0-3); Specific Gravity, Urine 1.011 (1.002-1.036); Squamous Epithelial 0-3 HPF (0-3); Urobilinogen Normal mg/dL (Less than 2); WBC/HPF 21-50 HPF (0-3)
[2022-03-16 12:36] LABS: Actual Bicarbonate (HCO3a) 20.3 mEq/L (22-28); Analyzer IN Cardio ER; Base Excess (BEa) -2.4 mEq/L (-2.0 to +3.0); Carboxyhemoglobin (COHb) 0.8 gm% (0.0-3.0); O2 Tension (PaO2), arterial 60.6 mmHg (> 80.0); Potassium - ABG Lab 4.31 mmol/L (3.70-5.30); pH, Arterial 7.45 (7.35-7.45)
[2022-03-16 12:40] LABS: Puncture Site RRA
[2022-03-16 13:16] LABS: ALT (SGPT) 14 U/L (8-55); AST (SGOT) 37 U/L (5-34); Albumin 4.2 g/dL (3.4-4.8); Alkaline Phosphatase 131 U/L (40-110); Anion Gap 21 mmol/L (10-20); BUN (Urea Nitrogen) 18 mg/dL (9.8-20.1); Bilirubin, Total 0.9 mg/dL (0.2-1.2); CK (CPK) 85 U/L (29-168); Calc. Creatinine Clearance 0 mL/min (70-130); Calcium 9.3 mg/dL (7.8-10.44); Carbon Dioxide 18 mmol/L (23-31); Chloride 92 mmol/L (98-107); Globulin 4.4 g/dL (2.4-3.5); Glucose 71 mg/dL (80-115); Lipase 81 U/L (8-78); Potassium 4.5 mmol/L (3.5-5.1); Protein, Total 8.6 g/dL (5.8-8.1); Sodium 126 mmol/L (136-145)
[2022-03-16 13:35] LABS: Hemoglobin 15.3 g/dL (12.0-16.0); Lymphocytes 17 % (21-51); MDiff Complete? YES; Macrocytosis SLIGHT = 6-15 cells (100X) (0-5/hpf); Mean Corpuscular HGB CONC 33.4 g/dL (32.0-36.0); Mean Corpuscular Hemoglobin 32.9 pg (27.0-31.0); Mean Corpuscular Volume 98.5 fL (78.0-98.0); Mean Platelet Volume 7.3 fL (7.4-10.4); Monocytes 30 % (0-10); Neutrophil 49 % (42-75); Platelet Count 190 thou/uL (130-400); Platelet Morphology Comment Appears Adequate; Polychromasia SLIGHT = 2-3 cells (100X) (0-2/hpf); RBC Distribution Width 11.6 % (11.5-14.5); Reactive Lymphocytes 4 % (0-10); Red Blood Cell (RBC) Count 4.65 mill/uL (4.20-5.40); White Blood Cell (WBC) Count 3.5 thou/uL (4.8-10.8)
[2022-03-16] MEDS ORDERED: Ondansetron PF 4 MG/2 ML Vial IVP PRN (15:05)
[2022-03-16] MEDS ORDERED: Ondansetron ODT 4 MG TAB PO PRN (15:05)
[2022-03-16] MEDS ORDERED: cefTRIAXone\\ROCEPHIN 1 GM in Sodium Chloride 0.9% 100 ML IVPB SCH (15:45)
[2022-03-16] MEDS: Acetaminophen 325 MG TAB PO PRN (17:01)
[2022-03-16] MEDS: methylPREDNISolone Sod Succ 40 MG VIAL IVP SCH (17:01)
[2022-03-16 21:09] LABS: SARS-CoV-2 NAA Rapid Test DETECTED (NotDetected)
[2022-03-16] MEDS: Lorazepam 1 MG TAB PO PRN (21:57)
[2022-03-17] MEDS: methylPREDNISolone Sod Succ 40 MG VIAL IVP SCH ×2 (00:36→05:37)
[2022-03-17] MEDS ORDERED: Albuterol 200 PUFF (6.7GM INHALER) INH PRN (05:39)
[2022-03-17] MEDS ORDERED: Amlodipine 10 MG TAB PO SCH (06:15)
[2022-03-17 07:02] LABS: AST (SGOT) 46 U/L (5-34); Albumin 3.7 g/dL (3.4-4.8); Anion Gap 18 mmol/L (10-20); BUN (Urea Nitrogen) 21 mg/dL (9.8-20.1); Bilirubin, Total 0.5 mg/dL (0.2-1.2); Calc. Creatinine Clearance 32 mL/min (70-130); Calcium 9.2 mg/dL (7.8-10.44); Carbon Dioxide 15 mmol/L (23-31); Chloride 96 mmol/L (98-107); Globulin 4.7 g/dL (2.4-3.5); Glucose 114 mg/dL (80-115); Potassium 4.8 mmol/L (3.5-5.1); Protein, Total 8.4 g/dL (5.8-8.1); Sodium 124 mmol/L (136-145)
[2022-03-17 07:06] LABS: Alkaline Phosphatase 106 U/L (40-110)
[2022-03-17 07:09] LABS: ALT (SGPT) 16 U/L (8-55)
[2022-03-17 08:15] LABS: #Lymphocytes 0.3 thou/uL (1.20-3.40); #Monocytes 0.1 thou/uL (0.11-0.59); #Neutrophils 1.3 thou/uL (1.40-6.50); %Basophils 0.8 % (0.0-1.0); %Eosinophils 0.1 % (0.0-10.0); %Lymphocytes 18.9 % (21.0-51.0); %Monocytes 8.2 % (0.0-10.0); Hemoglobin 15.5 g/dL (12.0-16.0); Mean Corpuscular HGB CONC 35.7 g/dL (32.0-36.0); Mean Corpuscular Volume 98.1 fL (78.0-98.0); Mean Platelet Volume 7.6 fL (7.4-10.4); Platelet Count 170 thou/uL (130-400); RBC Distribution Width 11.5 % (11.5-14.5); Red Blood Cell (RBC) Count 4.42 mill/uL (4.20-5.40); White Blood Cell (WBC) Count 1.7 thou/uL (4.8-10.8)
[2022-03-17] MEDS: Metoprolol Tartrate 50 MG TAB PO SCH ×2 (08:45→21:03)
[2022-03-17] MEDS: Zinc Sulfate 220 MG CAP PO SCH (08:45)
[2022-03-17] MEDS: cloNIDine 0.2 MG TAB PO SCH ×2 (08:45→21:03)
[2022-03-17] MEDS: Lorazepam 1 MG TAB PO PRN (08:45)
[2022-03-17] MEDS: Aspirin 81 mg Enteric Coated Tablet PO SCH (08:45)
[2022-03-17] MEDS: Sodium Chloride 0.9% 1,000 ML IV SCH (10:30)
[2022-03-17] MEDS: cefTRIAXone\\ROCEPHIN 1 GM in Sodium Chloride 0.9% 100 ML IVPB SCH (12:18)
[2022-03-17] MEDS ORDERED: Azithromycin 500 MG in Sodium Chloride 0.9% 250 ML 250 ML IVPB SCH (16:00)
[2022-03-17] MEDS ORDERED: cefTRIAXone\\ROCEPHIN 1 GM in Sodium Chloride 0.9% 100 ML IVPB SCH (16:00)
[2022-03-17] MEDS: Atorvastatin Calcium 40 MG TAB PO SCH (21:03)
[2022-03-17] MEDS: NIRMATRELVIR 150 MG/RITONAVIR 100 MG TABLET PO SCH (21:05)
[2022-03-18] MEDS: Acetaminophen 325 MG TAB PO PRN (05:40)
[2022-03-18] MEDS: Albuterol 200 PUFF (6.7GM INHALER) INH SCH ×6 (05:43→18:24)
[2022-03-18 06:49] LABS: Hemoglobin 15.1 g/dL (12.0-16.0); Mean Corpuscular Hemoglobin 33.2 pg (27.0-31.0); Mean Platelet Volume 8.2 fL (7.4-10.4); Platelet Count 162 thou/uL (130-400); RBC Distribution Width 11.6 % (11.5-14.5); Red Blood Cell (RBC) Count 4.55 mill/uL (4.20-5.40); White Blood Cell (WBC) Count 4.9 thou/uL (4.8-10.8)
[2022-03-18 07:02] LABS: Anion Gap 14 mmol/L (10-20); BUN (Urea Nitrogen) 28 mg/dL (9.8-20.1); Calc. Creatinine Clearance 33 mL/min (70-130); Calcium 8.5 mg/dL (7.8-10.44); Carbon Dioxide 21 mmol/L (23-31); Chloride 97 mmol/L (98-107); Glucose 99 mg/dL (80-115); Sodium 128 mmol/L (136-145)
[2022-03-18 07:17] LABS: Band 19 % (5-11); Lymphocytes 22 % (21-51); MDiff Complete? YES; Monocytes 10 % (0-10); Neutrophil 49 % (42-75); Platelet Morphology Comment Appears Adequate; RBC Morphology Normal
[2022-03-18] MEDS: HYDROcodone/Acetaminophen 5/325 mg Tablet PO PRN ×2 (08:48→19:35)
[2022-03-18] MEDS: Zinc Sulfate 220 MG CAP PO SCH (08:48)
[2022-03-18] MEDS: cloNIDine 0.2 MG TAB PO SCH ×2 (08:48→20:22)
[2022-03-18] MEDS: Aspirin 81 mg Enteric Coated Tablet PO SCH (08:48)
[2022-03-18] MEDS: Metoprolol Tartrate 50 MG TAB PO SCH ×2 (08:48→20:23)
[2022-03-18] MEDS: Amlodipine 10 MG TAB PO SCH (08:48)
[2022-03-18] MEDS: NIRMATRELVIR 150 MG/RITONAVIR 100 MG TABLET PO SCH ×2 (08:51→20:25)
[2022-03-18] MEDS ORDERED: Amlodipine 10 MG TAB PO SCH (09:00)
[2022-03-18] MEDS: Sodium Chloride 0.9% 1,000 ML IV SCH ×2 (12:43→19:36)
[2022-03-18] MEDS: cefTRIAXone\\ROCEPHIN 1 GM in Sodium Chloride 0.9% 100 ML IVPB SCH (12:44)
[2022-03-18] MEDS: Atorvastatin Calcium 40 MG TAB PO SCH (20:23)
[2022-03-18 23:44] LABS: Anion Gap 14 mmol/L (10-20); BUN (Urea Nitrogen) 28 mg/dL (9.8-20.1); Calc. Creatinine Clearance 31 mL/min (70-130); Calcium 7.9 mg/dL (7.8-10.44); Carbon Dioxide 18 mmol/L (23-31); Chloride 100 mmol/L (98-107); Glucose 100 mg/dL (80-115); Potassium 4.1 mmol/L (3.5-5.1); Sodium 128 mmol/L (136-145)
[2022-03-19] MEDS: Sodium Chloride 0.9% 1,000 ML IV SCH ×3 (02:17→23:53)
[2022-03-19] MEDS: Albuterol 200 PUFF (6.7GM INHALER) INH SCH ×4 (06:29→18:55)
[2022-03-19] MEDS: Amlodipine 10 MG TAB PO SCH (08:42)
[2022-03-19] MEDS: HYDROcodone/Acetaminophen 5/325 mg Tablet PO PRN ×2 (08:42→20:34)
[2022-03-19] MEDS: cloNIDine 0.2 MG TAB PO SCH ×2 (08:42→20:35)
[2022-03-19] MEDS: Zinc Sulfate 220 MG CAP PO SCH (08:42)
[2022-03-19] MEDS: Aspirin 81 mg Enteric Coated Tablet PO SCH (08:42)
[2022-03-19] MEDS: Metoprolol Tartrate 50 MG TAB PO SCH ×2 (08:42→20:37)
[2022-03-19] MEDS: NIRMATRELVIR 150 MG/RITONAVIR 100 MG TABLET PO SCH ×2 (08:44→20:37)
[2022-03-19] MEDS ORDERED: guaiFENesin ER 600 MG TAB PO SCH (11:00)
[2022-03-19] MEDS: methylPREDNISolone Sod Succ/PF 125 MG/2 ML VIAL IVP SCH ×3 (11:55→23:49)
[2022-03-19] MEDS: cefTRIAXone\\ROCEPHIN 1 GM in Sodium Chloride 0.9% 100 ML IVPB SCH (11:55)
[2022-03-19] MEDS: Mometasone 200 MCG/Formoterol 5 MCG 120 PUFF INHALER INH SCH (18:09)
[2022-03-19] MEDS: guaiFENesin ER 600 MG TAB PO SCH (20:34)
[2022-03-19] MEDS: Lorazepam 1 MG TAB PO PRN (20:36)
[2022-03-19] MEDS: Atorvastatin Calcium 40 MG TAB PO SCH (20:36)
[2022-03-20] MEDS: Benzonatate 100 MG CAP PO PRN ×3 (00:54→15:24)
[2022-03-20] MEDS: Albuterol 200 PUFF (6.7GM INHALER) INH SCH ×4 (02:45→18:35)
[2022-03-20] MEDS: methylPREDNISolone Sod Succ/PF 125 MG/2 ML VIAL IVP SCH ×3 (05:55→17:14)
[2022-03-20 07:05] LABS: Hemoglobin 15.8 g/dL (12.0-16.0); Mean Corpuscular HGB CONC 32.4 g/dL (32.0-36.0); Mean Corpuscular Hemoglobin 32.7 pg (27.0-31.0); Mean Platelet Volume 8.8 fL (7.4-10.4); Platelet Count 132 thou/uL (130-400); RBC Distribution Width 11.4 % (11.5-14.5); Red Blood Cell (RBC) Count 4.84 mill/uL (4.20-5.40); White Blood Cell (WBC) Count 1.4 thou/uL (4.8-10.8)
[2022-03-20 07:19] LABS: Anion Gap 15 mmol/L (10-20); BUN (Urea Nitrogen) 22 mg/dL (9.8-20.1); Calc. Creatinine Clearance 40 mL/min (70-130); Calcium 8.4 mg/dL (7.8-10.44); Carbon Dioxide 18 mmol/L (23-31); Chloride 99 mmol/L (98-107); Glucose 125 mg/dL (80-115); Potassium 4.2 mmol/L (3.5-5.1); Sodium 128 mmol/L (136-145)
[2022-03-20 07:26] LABS: Lymphocytes 40 % (21-51); MDiff Complete? YES; Macrocytosis SLIGHT = 6-15 cells (100X) (0-5/hpf); Monocytes 8 % (0-10); Neutrophil 52 % (42-75); Platelet Morphology Comment Appears Adequate; Polychromasia SLIGHT = 2-3 cells (100X) (0-2/hpf)
[2022-03-20] MEDS: guaiFENesin ER 600 MG TAB PO SCH ×2 (08:43→20:05)
[2022-03-20] MEDS: Amlodipine 10 MG TAB PO SCH (08:43)
[2022-03-20] MEDS: Aspirin 81 mg Enteric Coated Tablet PO SCH (08:43)
[2022-03-20] MEDS: Zinc Sulfate 220 MG CAP PO SCH (08:43)
[2022-03-20] MEDS: Metoprolol Tartrate 50 MG TAB PO SCH ×2 (08:43→20:04)
[2022-03-20] MEDS: Mometasone 200 MCG/Formoterol 5 MCG 120 PUFF INHALER INH SCH ×2 (08:44→20:03)
[2022-03-20] MEDS: NIRMATRELVIR 150 MG/RITONAVIR 100 MG TABLET PO SCH ×2 (08:48→20:05)
[2022-03-20] MEDS: HYDROcodone/Acetaminophen 5/325 mg Tablet PO PRN ×2 (09:04→15:24)
[2022-03-20] MEDS: cloNIDine 0.2 MG TAB PO SCH ×2 (09:08→20:04)
[2022-03-20] MEDS: cefTRIAXone\\ROCEPHIN 1 GM in Sodium Chloride 0.9% 100 ML IVPB SCH (12:35)
[2022-03-20] MEDS: Sodium Chloride 0.9% 1,000 ML IV SCH (15:19)
[2022-03-20] MEDS ORDERED: Vancomycin 1 GM in Premix Bag 1 BAG IVPB SCH (16:15)
[2022-03-20] MEDS: Atorvastatin Calcium 40 MG TAB PO SCH (20:04)
[2022-03-21] MEDS: methylPREDNISolone Sod Succ/PF 125 MG/2 ML VIAL IVP SCH ×3 (00:16→11:21)
[2022-03-21] MEDS: Albuterol 200 PUFF (6.7GM INHALER) INH SCH ×3 (00:54→12:50)
[2022-03-21] MEDS: Mometasone 200 MCG/Formoterol 5 MCG 120 PUFF INHALER INH SCH (05:42)
[2022-03-21 07:09] LABS: #Lymphocytes 0.5 thou/uL (1.20-3.40); #Monocytes 0.2 thou/uL (0.11-0.59); #Neutrophils 2.7 thou/uL (1.40-6.50); %Eosinophils 0.1 % (0.0-10.0); %Neutrophils 78.9 % (42.0-75.0); Hemoglobin 15.2 g/dL (12.0-16.0); Mean Corpuscular HGB CONC 32.9 g/dL (32.0-36.0); Mean Corpuscular Hemoglobin 32.9 pg (27.0-31.0); Mean Platelet Volume 8.9 fL (7.4-10.4); Platelet Count 115 thou/uL (130-400); RBC Distribution Width 11.6 % (11.5-14.5); Red Blood Cell (RBC) Count 4.63 mill/uL (4.20-5.40); White Blood Cell (WBC) Count 3.4 thou/uL (4.8-10.8)
[2022-03-21 07:21] LABS: Anion Gap 15 mmol/L (10-20); BUN (Urea Nitrogen) 23 mg/dL (9.8-20.1); Calc. Creatinine Clearance 42 mL/min (70-130); Calcium 8.3 mg/dL (7.8-10.44); Carbon Dioxide 20 mmol/L (23-31); Chloride 101 mmol/L (98-107); Glucose 123 mg/dL (80-115); Potassium 3.7 mmol/L (3.5-5.1); Sodium 132 mmol/L (136-145)
[2022-03-21] MEDS: Aspirin 81 mg Enteric Coated Tablet PO SCH (08:28)
[2022-03-21] MEDS: Amlodipine 10 MG TAB PO SCH (08:28)
[2022-03-21] MEDS: Metoprolol Tartrate 50 MG TAB PO SCH (08:29)
[2022-03-21] MEDS: Zinc Sulfate 220 MG CAP PO SCH (08:29)
[2022-03-21] MEDS: guaiFENesin ER 600 MG TAB PO SCH (08:29)
[2022-03-21] MEDS: cloNIDine 0.2 MG TAB PO SCH (08:29)
[2022-03-21] MEDS: Benzonatate 100 MG CAP PO PRN (08:29)
[2022-03-21] MEDS: NIRMATRELVIR 150 MG/RITONAVIR 100 MG TABLET PO SCH (08:30)
[2022-03-21] MEDS: Sodium Chloride 0.9% 1,000 ML IV SCH (08:32)
[2022-03-21 08:49] VITALS: BP 145/88; TEMP 97.6
[2022-03-21] MEDS: cefTRIAXone\\ROCEPHIN 1 GM in Sodium Chloride 0.9% 100 ML IVPB SCH (11:17)
[2022-03-21] MEDS ORDERED: Vancomycin HCl 750 MG in Sodium Chloride 0.9% 250 ML 250 ML IVPB SCH (17:00)
== END 2022-03-21 17:11 | disposition home or self-care (01) | DRG 177 ==
LOC: SUATTDRO 10:58 → ERS 10:58 → T4-B 14:05
PROVIDERS: ADMIT Internal Medicine; ATTEND Internal Medicine
PROC: 8E0ZXY6 Isolation (ICD-10-PCS; principal; 2022-03-16)
DX: U07.1 COVID-19 (principal); J12.82 Pneumonia due to coronavirus disease 2019; N39.0 Urinary tract infection, site not specified; J44.1 Chronic obstructive pulmonary disease with (acute) exacerbation; E87.1 Hypo-osmolality and hyponatremia; I50.32 Chronic diastolic (congestive) heart failure; I13.0 Hypertensive heart and chronic kidney disease with heart failure and stage 1 through stage 4 chronic kidney disease, or unspecified chronic kidney disease; B96.20 Unspecified Escherichia coli [E. coli] as the cause of diseases classified elsewhere; E78.5 Hyperlipidemia, unspecified; F17.210 Nicotine dependence, cigarettes, uncomplicated; Z28.21 Immunization not carried out because of patient refusal; Z79.899 Other long term (current) drug therapy; Z79.82 Long term (current) use of aspirin; Z79.51 Long term (current) use of inhaled steroids; Z86.73 Personal history of transient ischemic attack (TIA), and cerebral infarction without residual deficits; Z90.710 Acquired absence of both cervix and uterus; Z98.890 Other specified postprocedural states
CPT/HCPCS: 36415; 36416; 36600; 71045; 71250; 80048; 80053; 81003; 81015; 82550; 82805; 83605; 83690; 83880; 84484; 85025; 87040; 87077; 87086; 87186; 93005; 94640; 96361; 96365; 96375; J0696; J1100; J1956; J2920; J2930; J3370; J3475; J3490; J7050; J7611; J7620

== ENCOUNTER 2022-10-07 13:20 | Emergency (ER) | payer SELFPAY | END 2022-10-07 13:47 | disposition left against medical advice (07) | LOC: ERS 13:20 | DX: Z53.21 Procedure and treatment not carried out due to patient leaving prior to being seen by health care provider (principal) ==

== ENCOUNTER 2022-11-13 00:24 | Inpatient (IN) | payer SELFPAY ==
[2022-11-13] MEDS ORDERED: Ondansetron PF 4 MG/2 ML Vial ONE (00:34)
[2022-11-13] MEDS ORDERED: Ipratropium/Albuterol 3 ML NEB ONE (00:34)
[2022-11-13] MEDS ORDERED: Nitroglycerin 0.4 MG TAB 1 EACH ONE (00:44)
[2022-11-13] MEDS ORDERED: methylPREDNISolone Sod Succ/PF 125 MG/2 ML VIAL ONE (00:44)
[2022-11-13] MEDS ORDERED: Nitroglycerin 50 MG/250 ML BOT 250 ML ONE (01:05)
[2022-11-13 01:26] LABS: Mean Corpuscular HGB CONC 33.8 g/dL (32.0-36.0); Mean Platelet Volume 8.3 fL (7.4-10.4); Platelet Count 160 10x3/uL (130-400); RBC Distribution Width 12.6 % (11.5-14.5); Red Blood Cell (RBC) Count 4.72 mill/uL (4.20-5.40); White Blood Cell (WBC) Count 8.4 10x3/uL (4.8-10.8)
[2022-11-13 01:45] LABS: ALT (SGPT) 15 U/L (8-55); AST (SGOT) 33 U/L (5-34); Albumin 4.5 g/dL (3.4-4.8); Alkaline Phosphatase 104 U/L (40-110); Anion Gap 21 mmol/L (10-20); BUN (Urea Nitrogen) 29 mg/dL (9.8-20.1); Bilirubin, Total 0.7 mg/dL (0.2-1.2); Calc. Creatinine Clearance 0 mL/min (70-130); Calcium 9.7 mg/dL (7.8-10.44); Carbon Dioxide 17 mmol/L (23-31); Chloride 99 mmol/L (98-107); Estimated GFR 31; Globulin 4.3 g/dL (2.4-3.5); Glucose 101 mg/dL (80-115); Lipase 73 U/L (8-78); Potassium 5.3 mmol/L (3.5-5.1); Protein, Total 8.8 g/dL (5.8-8.1); Sodium 132 mmol/L (136-145)
[2022-11-13 01:54] LABS: Band 2 % (5-11); Eosinophils 1 % (0-10); Lymphocytes 23 % (21-51); MDiff Complete? YES; Macrocytosis SLIGHT = 6-15 cells (100X) (0-5/hpf); Monocytes 9 % (0-10); Neutrophil 62 % (42-75); Platelet Morphology Comment Appears Adequate; Reactive Lymphocytes 3 % (0-10)
[2022-11-13] MEDS ORDERED: Morphine 4 MG/ML VIAL ONE ×2 (02:08→05:59)
[2022-11-13 02:49] LABS: Acetaminophen Less than 10.0 mcg/mL (10.0-30.0); Alcohol Less than 10 mg/dL (Less than 10); Salicylate Less than 8.0 mg/dL (15.0-30.0)
[2022-11-13] MEDS ORDERED: Heparin 25,000 units/D5W 500 ML ONE (03:20)
[2022-11-13] MEDS ORDERED: Heparin 10,000 UNITS/ 10 ML VIAL ONE ×2 (03:37→15:35)
[2022-11-13 04:20] LABS: INR-International Normal Ratio 1.2; Prothrombin Time 15.2 sec (12.0-14.7)
[2022-11-13 04:41] LABS: PTT Greater than 250.0 sec (22.9-36.1)
[2022-11-13 05:21] LABS: Troponin I 0.759 ng/mL (< 0.028)
[2022-11-13] MEDS ORDERED: Furosemide 40 MG/4 ML VIAL ONE (05:56)
[2022-11-13] MEDS ORDERED: Ipratropium/Albuterol 3 ML NEB NEB PRN (06:09)
[2022-11-13] MEDS ORDERED: Acetaminophen 650 MG Suppository PR PRN (06:09)
[2022-11-13] MEDS ORDERED: Acetaminophen 325 MG TAB PO PRN (06:09)
[2022-11-13] MEDS ORDERED: Ondansetron PF 4 MG/2 ML Vial IVP PRN (06:09)
[2022-11-13] MEDS ORDERED: Ondansetron ODT 4 MG TAB PO PRN (06:09)
[2022-11-13 07:08] LABS: SARS-CoV-2 NAA Rapid Test Not Detected (NotDetected)
[2022-11-13 07:22] LABS: Actual Bicarbonate (HCO3a) 20.2 mEq/L (22-28); Base Excess (BEa) -4.3 mEq/L (-2.0 to +3.0); CO2 Tension 35.6 mmHg (35.0-45.0); Calcium, Ionized (arterial) 1.08 mmol/L (1.12-1.30); Carboxyhemoglobin (COHb) 1.6 gm% (0.0-3.0); Hemoglobin (Hb) 14.4 g/dL (12.0-16.0); O2 Tension (PaO2), arterial 64.2 mmHg (> 80.0); Potassium - ABG Lab 4.63 mmol/L (3.70-5.30); pH, Arterial 7.37 (7.35-7.45)
[2022-11-13 07:23] LABS: Puncture Site LRA
[2022-11-13] MEDS ORDERED: Nitroglycerin 50 MG/250 ML BOT 250 ML IVPB SCH (07:30)
[2022-11-13] MEDS ORDERED: cefTRIAXone\\ROCEPHIN 1 GM in Sodium Chloride 0.9% 100 ML IVPB SCH (08:00)
[2022-11-13 08:21] LABS: #Lymphocytes 0.5 thou/uL (1.20-3.40); #Monocytes 0.1 thou/uL (0.11-0.59); #Neutrophils 5.1 thou/uL (1.40-6.50); %Basophils 0.4 % (0.0-1.0); %Eosinophils 0.3 % (0.0-10.0); %Lymphocytes 8.5 % (21.0-51.0); %Monocytes 1.2 % (0.0-10.0); %Neutrophils 89.5 % (42.0-75.0); Hemoglobin 15.1 g/dL (12.0-16.0); Mean Corpuscular HGB CONC 33.1 g/dL (32.0-36.0); Mean Corpuscular Hemoglobin 33.3 pg (27.0-31.0); Mean Platelet Volume 8.5 fL (7.4-10.4); Platelet Count 199 10x3/uL (130-400); RBC Distribution Width 12.7 % (11.5-14.5); Red Blood Cell (RBC) Count 4.52 mill/uL (4.20-5.40); White Blood Cell (WBC) Count 5.7 10x3/uL (4.8-10.8)
[2022-11-13] MEDS ORDERED: Diltiazem HCl 125 MG, Admixture Fee 1 EACH in Sodium Chloride 0.9% 100 ML IVPB SCH (08:45)
[2022-11-13] MEDS ORDERED: ALPRAZolam 0.25 MG TAB PO PRN (08:49)
[2022-11-13 08:51] LABS: Troponin I 5.243 ng/mL (< 0.028)
[2022-11-13 09:07] LABS: Anion Gap 21 mmol/L (10-20); BUN (Urea Nitrogen) 27 mg/dL (9.8-20.1); Calc. Creatinine Clearance 34 mL/min (70-130); Calcium 9.6 mg/dL (7.8-10.44); Carbon Dioxide 14 mmol/L (23-31); Chloride 100 mmol/L (98-107); Estimated GFR 30; Glucose 165 mg/dL (80-115); Potassium 5.2 mmol/L (3.5-5.1); Sodium 130 mmol/L (136-145)
[2022-11-13] MEDS ORDERED: Albuterol 2.5 MG/0.5 ML NEB NEB PRN (09:15)
[2022-11-13] MEDS ORDERED: Electrolyte Replacement Protocol 1 EACH FS SCH (09:30)
[2022-11-13] MEDS ORDERED: Sodium Chloride 0.9% 1,000 ML IV SCH (09:30)
[2022-11-13] MEDS: Aspirin Chewable 81 MG TAB PO SCH (10:01)
[2022-11-13] MEDS ORDERED: Iopamidol 370 76% 100 ML VIAL ONE (10:22)
[2022-11-13] MEDS ORDERED: Electrolyte Replacement Protocol FS PRN (10:30)
[2022-11-13 11:07] LABS: CKMB 180.5 ng/mL (0-6.6)
[2022-11-13] MEDS ORDERED: Magnesium Sulfate In Water 4 GM in Premix Bag 1 BAG IVPB SCH (11:30)
[2022-11-13] MEDS: methylPREDNISolone Sod Succ 40 MG VIAL IVP SCH ×3 (12:03→23:24)
[2022-11-13] MEDS ORDERED: Iopamidol-370 76% 500 ML 1 ML ONE (13:41)
[2022-11-13] MEDS ORDERED: Rocuronium Bromide 10 MG/ML (10ML VIAL) ONE (13:47)
[2022-11-13 13:48] LABS: Creatinine, Urine 56.05 mg/dL (47-110)
[2022-11-13] MEDS ORDERED: Propofol 1,000 MG/100 ML VIAL IV ONE (14:05)
[2022-11-13 14:20] LABS: INR-International Normal Ratio 1.1; PTT 72.7 sec (22.9-36.1); Prothrombin Time 14.2 sec (12.0-14.7)
[2022-11-13] MEDS ORDERED: Morphine 4 MG/ML VIAL SLOW IVP PRN (14:30)
[2022-11-13] MEDS ORDERED: Propofol BOLUS 1,000 MG/100 ML VIAL IV PRN (14:30)
[2022-11-13] MEDS ORDERED: Ventilator Sedation Protocol 1 EACH FS SCH (14:30)
[2022-11-13] MEDS ORDERED: Fentanyl BOLUS 250 ML IVPB PRN (14:30)
[2022-11-13] MEDS: Ipratropium/Albuterol 3 ML NEB NEB SCH ×3 (14:44→22:29)
[2022-11-13 15:11] LABS: Actual Bicarbonate (HCO3a) 17.7 mEq/L (22-28); Base Excess (BEa) -8.5 mEq/L (-2.0 to +3.0); CO2 Tension 38.9 mmHg (35.0-45.0); Calcium, Ionized (arterial) 1.14 mmol/L (1.12-1.30); Carboxyhemoglobin (COHb) 0.8 gm% (0.0-3.0); Hemoglobin (Hb) 14.7 g/dL (12.0-16.0); Potassium - ABG Lab 4.99 mmol/L (3.70-5.30); pH, Arterial 7.28 (7.35-7.45)
[2022-11-13] MEDS ORDERED: Rocuronium Bromide 10 MG/ML (10ML VIAL) IVP SCH (15:15)
[2022-11-13 15:24] LABS: ALV-art Gradient 177.675 mmHg (0-20); Puncture Site LRA
[2022-11-13] MEDS ORDERED: Communication Order-Pharmacy FS SCH (15:30)
[2022-11-13] MEDS ORDERED: Nitroglycerin 100MG/250ML BOT 0 ML ONE (15:35)
[2022-11-13] MEDS ORDERED: Lidocaine 1% (PF) 30 ML VIAL ONE (15:35)
[2022-11-13 17:45] LABS: Anion Gap 18 mmol/L (10-20); BUN (Urea Nitrogen) 33 mg/dL (9.8-20.1); Calc. Creatinine Clearance 28 mL/min (70-130); Calcium 8.6 mg/dL (7.8-10.44); Carbon Dioxide 17 mmol/L (23-31); Chloride 97 mmol/L (98-107); Estimated GFR 24; Glucose 165 mg/dL (80-115); Potassium 4.8 mmol/L (3.5-5.1); Sodium 127 mmol/L (136-145)
[2022-11-13] MEDS ORDERED: Sodium Bicarbonate 150 MEQ in Dextrose 5% in Water 1,000 ML IV ONE (18:00)
[2022-11-13] MEDS ORDERED: Sodium Chloride 0.9% 200 ML IV PRN (18:13)
[2022-11-13] MEDS ORDERED: Acetaminophen/Codeine 30-300mg Tablet PO PRN ×2 (18:13)
[2022-11-13] MEDS ORDERED: Nitroglycerin 0.4 MG TAB (25 Tab Bottle) SL PRN (18:13)
[2022-11-13] MEDS: Propofol 1,000 MG/100 ML VIAL IV PRN (18:53)
[2022-11-13 20:27] LABS: PTT 79.8 sec (22.9-36.1)
[2022-11-13] MEDS: Lorazepam 2 MG/ML VIAL SLOW IVP PRN (20:35)
[2022-11-13] MEDS: Atorvastatin Calcium 40 MG TAB PO SCH (22:21)
[2022-11-13] MEDS ORDERED: Fentanyl CADD 100 ML ONE (23:07)
[2022-11-13] MEDS: Fentanyl CADD 100 ML IV SCH (23:24)
[2022-11-14] MEDS: Propofol 1,000 MG/100 ML VIAL IV PRN ×4 (01:35→22:43)
[2022-11-14] MEDS: Ipratropium/Albuterol 3 ML NEB NEB SCH ×6 (02:47→23:36)
[2022-11-14 03:48] LABS: #Lymphocytes 0.7 thou/uL (1.20-3.40); #Monocytes 0.6 thou/uL (0.11-0.59); %Basophils 0.1 % (0.0-1.0); %Eosinophils 0.1 % (0.0-10.0); %Lymphocytes 6.3 % (21.0-51.0); %Monocytes 5.8 % (0.0-10.0); %Neutrophils 87.6 % (42.0-75.0); Hemoglobin 13.7 g/dL (12.0-16.0); Mean Corpuscular HGB CONC 33.2 g/dL (32.0-36.0); Mean Corpuscular Hemoglobin 33.4 pg (27.0-31.0); Mean Platelet Volume 8.6 fL (7.4-10.4); Platelet Count 179 10x3/uL (130-400); RBC Distribution Width 12.8 % (11.5-14.5); Red Blood Cell (RBC) Count 4.09 mill/uL (4.20-5.40); White Blood Cell (WBC) Count 10.2 10x3/uL (4.8-10.8)
[2022-11-14 03:50] LABS: Bacteria/HPF None Seen HPF (None Seen); Bilirubin Negative (Negative); Blood, Urine Negative (Negative); Clarity Clear (Clear); Glucose, Urine (Dipstick) Normal (Negative); Ketone, Urine Negative (Negative); Leukocyte Negative Leu/uL (Negative); Nitrite Negative (Negative); Protein, Urine (Dipstick) 10 mg/dL (Neg-Trace); RBC/HPF 0-3 HPF (0-3); Specific Gravity, Urine 1.041 (1.002-1.036); Squamous Epithelial 0-3 HPF (0-3); Urobilinogen Normal mg/dL (Less than 2); WBC/HPF 0-3 HPF (0-3); pH, Urine 5.5 (5.0-9.0)
[2022-11-14 04:08] LABS: Anion Gap 17 mmol/L (10-20); BUN (Urea Nitrogen) 35 mg/dL (9.8-20.1); Calc. Creatinine Clearance 29 mL/min (70-130); Calcium 8.6 mg/dL (7.8-10.44); Carbon Dioxide 22 mmol/L (23-31); Cardiac Risk 1.9 (Less than 4.5); Chloride 94 mmol/L (98-107); Cholesterol 143 mg/dl (< 200 Desired); Estimated GFR 25; Glucose 166 mg/dL (80-115); HDL Cholesterol 75 mg/dL (>60 Neg Risk); LDL Cholesterol, Calculated 56 mg/dL; Sodium 129 mmol/L (136-145); Triglycerides 61 mg/dL (Less than 150)
[2022-11-14] MEDS: methylPREDNISolone Sod Succ 40 MG VIAL IVP SCH ×4 (05:32→22:57)
[2022-11-14] MEDS: Heparin 10,000 UNITS/ 10 ML VIAL SLOW IVP SCH ×2 (06:36→22:44)
[2022-11-14] MEDS ORDERED: Sodium Bicarbonate 150 MEQ in Dextrose 5% in Water 1,000 ML IV SCH (07:15)
[2022-11-14 07:38] LABS: Actual Bicarbonate (HCO3a) 25.9 mEq/L (22-28); Base Excess (BEa) 1.8 mEq/L (-2.0 to +3.0); CO2 Tension 38.7 mmHg (35.0-45.0); Calcium, Ionized (arterial) 1.05 mmol/L (1.12-1.30); Carboxyhemoglobin (COHb) 0.4 gm% (0.0-3.0); Hemoglobin (Hb) 14.2 g/dL (12.0-16.0); O2 Tension (PaO2), arterial 69.2 mmHg (> 80.0); Potassium - ABG Lab 3.89 mmol/L (3.70-5.30); pH, Arterial 7.44 (7.35-7.45)
[2022-11-14 07:41] LABS: ALV-art Gradient 238.925 mmHg (0-20); Puncture Site RBA
[2022-11-14] MEDS: Aspirin Chewable 81 MG TAB PO SCH (09:16)
[2022-11-14] MEDS: Lorazepam 2 MG/ML VIAL SLOW IVP PRN (09:16)
[2022-11-14] MEDS: Pantoprazole 40 MG VIAL IVP SCH (09:17)
[2022-11-14] MEDS: Heparin 25,000 units/D5W 500 ML IVPB SCH (09:17)
[2022-11-14 11:25] LABS: CKMB 252.1 ng/mL (0-6.6)
[2022-11-14 12:56] LABS: PTT 133.7 sec (22.9-36.1)
[2022-11-14 13:48] LABS: CKMB 181.6 ng/mL (0-6.6)
[2022-11-14] MEDS: Diltiazem HCl 125 MG, Admixture Fee 1 EACH in Sodium Chloride 0.9% 100 ML IVPB SCH ×2 (14:17→21:48)
[2022-11-14 17:24] LABS: Anion Gap 18 mmol/L (10-20); BUN (Urea Nitrogen) 35 mg/dL (9.8-20.1); CK (CPK) 1603 U/L (29-168); Calc. Creatinine Clearance 26 mL/min (70-130); Calcium 8.6 mg/dL (7.8-10.44); Carbon Dioxide 27 mmol/L (23-31); Chloride 88 mmol/L (98-107); Estimated GFR 26; Glucose 143 mg/dL (80-115); Potassium 3.7 mmol/L (3.5-5.1); Sodium 129 mmol/L (136-145)
[2022-11-14 18:04] LABS: Troponin I Greater than 45.000 ng/mL (< 0.028)
[2022-11-14] MEDS: Atorvastatin Calcium 40 MG TAB PO SCH (20:00)
[2022-11-14] MEDS: Sodium Chloride 0.9% 1,000 ML IV SCH (21:49)
[2022-11-14 21:59] LABS: Prothrombin Time 13.1 sec (12.0-14.7)
[2022-11-14 22:00] LABS: PTT 38.5 sec (22.9-36.1)
[2022-11-14] MEDS ORDERED: Digoxin 0.5 MG/2 ML AMP SLOW IVP SCH (22:30)
[2022-11-15] MEDS: Ipratropium/Albuterol 3 ML NEB NEB SCH ×6 (02:10→22:56)
[2022-11-15 03:19] LABS: Troponin I 101.253 ng/mL (< 0.028)
[2022-11-15] MEDS: methylPREDNISolone Sod Succ 40 MG VIAL IVP SCH (05:31)
[2022-11-15] MEDS: Diltiazem 125 MG in Sodium Chloride 0.9% 100 ML IVPB SCH ×3 (05:31→23:17)
[2022-11-15] MEDS: Propofol 1,000 MG/100 ML VIAL IV PRN ×4 (05:31→20:58)
[2022-11-15] MEDS: Sodium Chloride 0.9% 1,000 ML IV SCH ×3 (05:34→20:58)
[2022-11-15 05:35] LABS: #Lymphocytes 0.3 thou/uL (1.20-3.40); #Monocytes 1.1 thou/uL (0.11-0.59); #Neutrophils 13.6 thou/uL (1.40-6.50); %Basophils 0.1 % (0.0-1.0); %Eosinophils 0.1 % (0.0-10.0); %Lymphocytes 2.3 % (21.0-51.0); %Monocytes 7.4 % (0.0-10.0); %Neutrophils 90.2 % (42.0-75.0); Hemoglobin 12.7 g/dL (12.0-16.0); Mean Corpuscular HGB CONC 33.4 g/dL (32.0-36.0); Mean Platelet Volume 8.7 fL (7.4-10.4); Platelet Count 170 10x3/uL (130-400); RBC Distribution Width 12.8 % (11.5-14.5); Red Blood Cell (RBC) Count 3.73 mill/uL (4.20-5.40); White Blood Cell (WBC) Count 15.1 10x3/uL (4.8-10.8)
[2022-11-15 05:42] LABS: Anion Gap 16 mmol/L (10-20); BUN (Urea Nitrogen) 39 mg/dL (9.8-20.1); CK (CPK) 1163 U/L (29-168); CRP (Inflammatory) Less than 0.50 mg/dL (= or < 0.5); Calc. Creatinine Clearance 24 mL/min (70-130); Calcium 8.4 mg/dL (7.8-10.44); Carbon Dioxide 28 mmol/L (23-31); Chloride 89 mmol/L (98-107); Estimated GFR 24; Glucose 132 mg/dL (80-115); Potassium 3.8 mmol/L (3.5-5.1); Sodium 129 mmol/L (136-145)
[2022-11-15 08:06] LABS: ALV-art Gradient 164.875 mmHg (0-20); Actual Bicarbonate (HCO3a) 29.7 mEq/L (22-28); Base Excess (BEa) 5.2 mEq/L (-2.0 to +3.0); CO2 Tension 43.3 mmHg (35.0-45.0); Calcium, Ionized (arterial) 1.03 mmol/L (1.12-1.30); Carboxyhemoglobin (COHb) 0.8 gm% (0.0-3.0); Hemoglobin (Hb) 13.4 g/dL (12.0-16.0); O2 Tension (PaO2), arterial 66.2 mmHg (> 80.0); Potassium - ABG Lab 3.77 mmol/L (3.70-5.30); Puncture Site RRA; pH, Arterial 7.45 (7.35-7.45)
[2022-11-15] MEDS: Aspirin Chewable 81 MG TAB PO SCH (09:41)
[2022-11-15] MEDS: Pantoprazole 40 MG VIAL IVP SCH (09:41)
[2022-11-15 10:25] LABS: Creatinine, Urine 120.49 mg/dL (47-110); Sodium, Urine Less than 20 mmol/L (Not Available)
[2022-11-15 10:28] LABS: Prothrombin Time 13.4 sec (12.0-14.7)
[2022-11-15 10:29] LABS: PTT 66.6 sec (22.9-36.1)
[2022-11-15] MEDS: Lorazepam 2 MG/ML VIAL SLOW IVP PRN (10:44)
[2022-11-15] MEDS ORDERED: Fentanyl CADD 100 ML ONE (10:51)
[2022-11-15] MEDS: Fentanyl CADD 100 ML IV SCH (10:54)
[2022-11-15] MEDS: Heparin 25,000 units/D5W 500 ML IVPB SCH (14:01)
[2022-11-15] MEDS: Heparin 10,000 UNITS/ 10 ML VIAL SLOW IVP SCH (17:30)
[2022-11-15 17:51] LABS: Troponin I 113.927 ng/mL (< 0.028)
[2022-11-15] MEDS: Atorvastatin Calcium 40 MG TAB PO SCH (20:58)
[2022-11-15 23:04] LABS: PTT 121.7 sec (22.9-36.1)
[2022-11-16] MEDS: Ipratropium/Albuterol 3 ML NEB NEB SCH ×6 (02:54→21:14)
[2022-11-16 04:26] LABS: #Lymphocytes 0.6 thou/uL (1.20-3.40); #Neutrophils 11.3 thou/uL (1.40-6.50); %Lymphocytes 4.5 % (21.0-51.0); %Monocytes 14.4 % (0.0-10.0); Hemoglobin 12.4 g/dL (12.0-16.0); Mean Corpuscular Hemoglobin 33.6 pg (27.0-31.0); Mean Platelet Volume 8.5 fL (7.4-10.4); Platelet Count 167 10x3/uL (130-400); RBC Distribution Width 12.9 % (11.5-14.5); Red Blood Cell (RBC) Count 3.71 mill/uL (4.20-5.40); White Blood Cell (WBC) Count 13.9 10x3/uL (4.8-10.8)
[2022-11-16 04:44] LABS: Anion Gap 16 mmol/L (10-20); BUN (Urea Nitrogen) 46 mg/dL (9.8-20.1); CK (CPK) 1130 U/L (29-168); Calc. Creatinine Clearance 22 mL/min (70-130); Calcium 8.2 mg/dL (7.8-10.44); Carbon Dioxide 25 mmol/L (23-31); Chloride 92 mmol/L (98-107); Estimated GFR 20; Glucose 122 mg/dL (80-115); Sodium 129 mmol/L (136-145)
[2022-11-16] MEDS: Lansoprazole 15 MG/5 ML (BATCHED)UDCUP PER TUBE SCH (07:17)
[2022-11-16] MEDS: Aspirin Chewable 81 MG TAB PO SCH (07:17)
[2022-11-16 07:42] LABS: Actual Bicarbonate (HCO3a) 27.8 mEq/L (22-28); Base Excess (BEa) 2.6 mEq/L (-2.0 to +3.0); CO2 Tension 45.1 mmHg (35.0-45.0); Calcium, Ionized (arterial) 1.06 mmol/L (1.12-1.30); Carboxyhemoglobin (COHb) 0.4 gm% (0.0-3.0); Hemoglobin (Hb) 13.4 g/dL (12.0-16.0); O2 Tension (PaO2), arterial 70.4 mmHg (> 80.0); Potassium - ABG Lab 4.04 mmol/L (3.70-5.30); pH, Arterial 7.41 (7.35-7.45)
[2022-11-16 07:49] LABS: ALV-art Gradient 158.425 mmHg (0-20); Puncture Site LBA
[2022-11-16] MEDS ORDERED: Lansoprazole 3 MG/ML ORAL SUSPENSION PER TUBE SCH (09:00)
[2022-11-16 09:34] LABS: PTT 135.3 sec (22.9-36.1)
[2022-11-16] MEDS: Heparin 5,000 UNITS/ML VIAL SC SCH ×2 (10:48→21:08)
[2022-11-16] MEDS: Propofol 1,000 MG/100 ML VIAL IV PRN ×2 (14:32→21:08)
[2022-11-16] MEDS: Sodium Chloride 0.9% 1,000 ML IV SCH (14:32)
[2022-11-16] MEDS: Diltiazem 125 MG in Sodium Chloride 0.9% 100 ML IVPB SCH (14:32)
[2022-11-16 15:19] LABS: O2 Tension (PaO2), arterial 58.9 mmHg (> 80.0)
[2022-11-16] MEDS: Atorvastatin Calcium 40 MG TAB PO SCH (21:08)
[2022-11-17] MEDS: Ipratropium/Albuterol 3 ML NEB NEB SCH ×6 (02:25→22:45)
[2022-11-17] MEDS: Sodium Chloride 0.9% 1,000 ML IV SCH ×2 (02:55→14:29)
[2022-11-17 05:21] LABS: Anion Gap 12 mmol/L (10-20); BUN (Urea Nitrogen) 42 mg/dL (9.8-20.1); Calc. Creatinine Clearance 33 mL/min (70-130); Calcium 7.9 mg/dL (7.8-10.44); Carbon Dioxide 28 mmol/L (23-31); Chloride 96 mmol/L (98-107); Estimated GFR 33; Glucose 100 mg/dL (80-115); Potassium 4.3 mmol/L (3.5-5.1); Sodium 132 mmol/L (136-145)
[2022-11-17 05:22] LABS: Lymphocytes 17 % (21-51); MDiff Complete? YES; Macrocytosis MODERATE=16-30 cells (100X) (0-5/hpf); Mean Corpuscular HGB CONC 32.9 g/dL (32.0-36.0); Mean Corpuscular Hemoglobin 33.9 pg (27.0-31.0); Mean Platelet Volume 8.4 fL (7.4-10.4); Monocytes 18 % (0-10); Neutrophil 65 % (42-75); Ovalocytes SLIGHT = 2-5 cells (100X) (0-1/hpf); Platelet Count 156 10x3/uL (130-400); Platelet Morphology Comment Appears Adequate; RBC Distribution Width 12.7 % (11.5-14.5); Red Blood Cell (RBC) Count 3.53 mill/uL (4.20-5.40); White Blood Cell (WBC) Count 10.5 10x3/uL (4.8-10.8)
[2022-11-17] MEDS: Propofol 1,000 MG/100 ML VIAL IV PRN ×4 (06:15→20:12)
[2022-11-17 07:36] LABS: Actual Bicarbonate (HCO3a) 29.8 mEq/L (22-28); Base Excess (BEa) 3.8 mEq/L (-2.0 to +3.0); CO2 Tension 51.1 mmHg (35.0-45.0); Carboxyhemoglobin (COHb) 0.4 gm% (0.0-3.0); Hemoglobin (Hb) 12.9 g/dL (12.0-16.0); Potassium - ABG Lab 4.39 mmol/L (3.70-5.30); pH, Arterial 7.38 (7.35-7.45)
[2022-11-17 07:37] LABS: ALV-art Gradient 162.825 mmHg (0-20); O2 Tension (PaO2), arterial 58.5 mmHg (> 80.0); Puncture Site RRA
[2022-11-17] MEDS: Aspirin Chewable 81 MG TAB PO SCH (08:43)
[2022-11-17] MEDS: Heparin 5,000 UNITS/ML VIAL SC SCH ×2 (08:43→20:12)
[2022-11-17] MEDS: Lansoprazole 15 MG/5 ML (BATCHED)UDCUP PER TUBE SCH (08:44)
[2022-11-17 08:59] LABS: CK (CPK) 813 U/L (29-168)
[2022-11-17] MEDS ORDERED: methylPREDNISolone Sod Succ 40 MG VIAL IVP SCH (10:00)
[2022-11-17] MEDS: Fentanyl CADD 100 ML IV SCH (10:10)
[2022-11-17 10:14] LABS: Actual Bicarbonate (HCO3v) 28 mEq/L (22-28); Base Excess 4.4 mEq/L (-2.0 to +3.0); Calcium, Ionized (venous) 0.99 mmol/L (1.16-1.32); Chloride (VBG) 96 mmol/L (98-106); Hemoglobin (Hb) 14.1 g/dL (11.7-16.0); Potassium (VBG) 4.69 mmol/L (3.70-5.30); Sodium 132.5 mmol/L (133-146); pH (venous) 7.47 (7.32-7.43)
[2022-11-17] MEDS: Diltiazem 125 MG in Sodium Chloride 0.9% 100 ML IVPB SCH (14:07)
[2022-11-17] MEDS: Atorvastatin Calcium 40 MG TAB PO SCH (20:12)
[2022-11-17] MEDS: methylPREDNISolone Sod Succ 40 MG VIAL IVP SCH (20:12)
[2022-11-18] MEDS: Ipratropium/Albuterol 3 ML NEB NEB SCH ×4 (02:24→14:24)
[2022-11-18 04:21] LABS: #Lymphocytes 0.3 thou/uL (1.20-3.40); #Monocytes 0.5 thou/uL (0.11-0.59); #Neutrophils 7.5 thou/uL (1.40-6.50); %Lymphocytes 3.7 % (21.0-51.0); %Monocytes 5.6 % (0.0-10.0); %Neutrophils 90.7 % (42.0-75.0); Hemoglobin 10.9 g/dL (12.0-16.0); Mean Corpuscular HGB CONC 31.7 g/dL (32.0-36.0); Mean Corpuscular Hemoglobin 32.9 pg (27.0-31.0); Mean Platelet Volume 8.5 fL (7.4-10.4); Platelet Count 149 10x3/uL (130-400); RBC Distribution Width 12.7 % (11.5-14.5); Red Blood Cell (RBC) Count 3.32 mill/uL (4.20-5.40); White Blood Cell (WBC) Count 8.2 10x3/uL (4.8-10.8)
[2022-11-18] MEDS: Propofol 1,000 MG/100 ML VIAL IV PRN ×2 (04:45→09:45)
[2022-11-18 04:47] LABS: ALT (SGPT) 23 U/L (8-55); AST (SGOT) 57 U/L (5-34); Albumin 2.8 g/dL (3.4-4.8); Alkaline Phosphatase 49 U/L (40-110); Anion Gap 12 mmol/L (10-20); BUN (Urea Nitrogen) 42 mg/dL (9.8-20.1); Bilirubin, Total 0.4 mg/dL (0.2-1.2); CK (CPK) 367 U/L (29-168); Calc. Creatinine Clearance 37 mL/min (70-130); Calcium 8.3 mg/dL (7.8-10.44); Carbon Dioxide 27 mmol/L (23-31); Chloride 99 mmol/L (98-107); Estimated GFR 36; Globulin 2.9 g/dL (2.4-3.5); Glucose 123 mg/dL (80-115); Protein, Total 5.7 g/dL (5.8-8.1); Sodium 133 mmol/L (136-145)
[2022-11-18] MEDS: Fentanyl CADD 100 ML IV SCH (06:19)
[2022-11-18] MEDS: Heparin 5,000 UNITS/ML VIAL SC SCH (08:17)
[2022-11-18] MEDS: Aspirin Chewable 81 MG TAB PO SCH (08:17)
[2022-11-18] MEDS: methylPREDNISolone Sod Succ 40 MG VIAL IVP SCH (08:17)
[2022-11-18] MEDS: Sodium Chloride 0.9% 1,000 ML IV SCH (08:35)
[2022-11-18] MEDS ORDERED: methylPREDNISolone Sod Succ 40 MG VIAL IVP SCH (09:00)
[2022-11-18] MEDS ORDERED: cefTRIAXone\\ROCEPHIN 1 GM in Sodium Chloride 0.9% 100 ML IVPB SCH (09:00)
[2022-11-18] MEDS ORDERED: Furosemide 20 MG/2 ML VIAL SLOW IVP SCH (09:00)
[2022-11-18] MEDS: Lansoprazole 15 MG/5 ML (BATCHED)UDCUP PER TUBE SCH (09:45)
[2022-11-18] MEDS ORDERED: Budesonide 0.5 MG/2 ML NEB NEB SCH ×2 (10:30→18:30)
[2022-11-18 10:34] VITALS: BP 125/75
[2022-11-18] MEDS: Morphine 4 MG/ML VIAL SLOW IVP PRN ×20 (10:46→20:50)
[2022-11-18] MEDS: Lorazepam 2 MG/ML VIAL SLOW IVP PRN ×6 (10:47→20:51)
[2022-11-18] MEDS ORDERED: Glycopyrrolate 0.2 MG/ML 5 ML SYRINGE SLOW IVP SCH (11:36)
[2022-11-18 12:02] VITALS: TEMP 98.4
[2022-11-18] MEDS ORDERED: Empagliflozin 10 MG TAB PO SCH (12:15)
[2022-11-18 13:38] VITALS: BMI 22.1
== END 2022-11-18 23:42 | disposition expired | DRG 207 ==
LOC: ERS 00:24 → CCU 06:29
PROVIDERS: ADMIT Student in an Organized Health Care Education/Training Program; ATTEND Internal Medicine
PROC: 0BH17EZ Insertion of Endotracheal Airway into Trachea, Via Natural or Artificial Opening (ICD-10-PCS; principal; 2022-11-13)
PROC: 5A1955Z Respiratory Ventilation, Greater than 96 Consecutive Hours (ICD-10-PCS; 2022-11-13)
PROC: 5A09357 Assistance with Respiratory Ventilation, Less than 24 Consecutive Hours, Continuous Positive Airway Pressure (ICD-10-PCS; 2022-11-13)
PROC: 4A023N7 Measurement of Cardiac Sampling and Pressure, Left Heart, Percutaneous Approach (ICD-10-PCS; 2022-11-13)
PROC: B2111ZZ Fluoroscopy of Multiple Coronary Arteries using Low Osmolar Contrast (ICD-10-PCS; 2022-11-13)
PROC: B2151ZZ Fluoroscopy of Left Heart using Low Osmolar Contrast (ICD-10-PCS; 2022-11-13)
DX: J96.01 Acute respiratory failure with hypoxia (principal); I21.4 Non-ST elevation (NSTEMI) myocardial infarction; G93.41 Metabolic encephalopathy; I50.33 Acute on chronic diastolic (congestive) heart failure; I13.0 Hypertensive heart and chronic kidney disease with heart failure and stage 1 through stage 4 chronic kidney disease, or unspecified chronic kidney disease; J44.1 Chronic obstructive pulmonary disease with (acute) exacerbation; N17.9 Acute kidney failure, unspecified; M62.82 Rhabdomyolysis; E87.20 Acidosis, unspecified; E87.1 Hypo-osmolality and hyponatremia; I42.9 Cardiomyopathy, unspecified; Z51.5 Encounter for palliative care; I48.91 Unspecified atrial fibrillation; E87.5 Hyperkalemia; N18.32 Chronic kidney disease, stage 3b; R57.0 Cardiogenic shock; D63.1 Anemia in chronic kidney disease; I25.10 Atherosclerotic heart disease of native coronary artery without angina pectoris; F17.210 Nicotine dependence, cigarettes, uncomplicated; Z20.822 Contact with and (suspected) exposure to COVID-19; I73.9 Peripheral vascular disease, unspecified; E78.00 Pure hypercholesterolemia, unspecified; Z90.710 Acquired absence of both cervix and uterus; Z79.51 Long term (current) use of inhaled steroids; Z86.73 Personal history of transient ischemic attack (TIA), and cerebral infarction without residual deficits; Z78.1 Physical restraint status; Z79.82 Long term (current) use of aspirin; Z79.899 Other long term (current) drug therapy; Z79.890 Hormone replacement therapy; Z98.890 Other specified postprocedural states
CPT/HCPCS: 36415; 36600; 71045; 71275; 74174; 76770; 80048; 80053; 80061; 80307; 81001; 82550; 82553; 82570; 82805; 83690; 83874; 83880; 84145; 84156; 84300; 84484; 84540; 85025; 85347; 85610; 85730; 86140; 93005; 93010; 93306; 93458; 94002; 94003; 94640; 94660; 94760; 96365; 96366; 96374; 96375; C1769; C1887; C1894; C9113; J0696; J1160; J1644; J1940; J2001; J2060; J2270; J2405; J2704; J2920; J2930; J3010; J3475; J3490; J7050; J7070; J7620; Q9967